=== PATIENT | male | born 1965 | race Caucasian/White ===

== ENCOUNTER 2024-02-17 19:29 | Emergency (ER) | payer OTHER, SELFPAY ==
--- NOTE | 2024-02-17 19:56 | CRLHL7_ITS ---
For Patients: As a result of the Century Cures Act, medical imaging exams and procedure reports are released immediately into your electronic medical record. You may view this report before your referring provider. If you have questions, please contact your health care provider. INDICATION: Crush injury TECHNIQUE: Humerus radiographs 2 views COMPARISON: None FINDINGS: Bones: Alignment is normal. No acute fractures or aggressive osseous lesions seen. Joint spaces: The visualized glenohumeral and elbow joints are unremarkable. The elbow joint is not profiled and if there is pain or tenderness in this region, dedicated views of the elbow are recommended. Soft tissues: Unremarkable. No radiopaque foreign bodies seen. IMPRESSION: 1. No acute osseous injuries are identified. Dictated by Matt Barry MD @ 02/17/2024 9:20:36 PM (Electronically Signed)
--- NOTE | 2024-02-17 19:57 | XR_ITS ---
Patient: KYMBERLY CM Facility:?[facility] Patient ID:?[id number] Site Patient ID:?[id number]. Site :?[id number] Study:?XRay-Extremity Left HUMERUS 2 VIEW-02/17/2024 8:35:25 PM Ordering Physician:Neha Dacosta Final Report: ----- ADDENDUM ----- INDICATION: Crush injury TECHNIQUE: Humerus radiographs 2 views COMPARISON: None FINDINGS: Bones: Alignment is normal. No acute fractures or aggressive osseous lesions seen. Joint spaces: The visualized glenohumeral and elbow joints are unremarkable. The elbow joint is not profiled and if there is pain or tenderness in this region, dedicated views of the elbow are recommended. Soft tissues: Unremarkable. No radiopaque foreign bodies seen. Triceps enthesophyte. IMPRESSION: No acute osseous injuries are identified. Dictated by Matt Barry MD @ Feb 17 2024 9:21PM Signed by:?Matt Barry MD @02/17/2024 9:40:49 PM (Electronic Signature)
[2024-02-17 20:23] VITALS: BP 134/85; PULSE 89; RESP 22; TEMP 36.8; O2SAT 96; BMI 25.2
--- NOTE | 2024-02-17 20:24 | ED_ITS ---
HPI - Extremity Injury (Upper) General Time Seen by Provider: 20:24 Date Seen: 02/17/24 Chief Complaint: Extremity Pain/Injury, Upper Stated Complaint: broken L arm Time Seen by Provider: 02/17/24 20:21 Source: patient, RN notes reviewed and old records reviewed Mode of arrival: ambulatory Limitations: no limitations History of Present Illness HPI narrative: 59-year-old right-handed male who presents today with left arm pain. Related Data Home Medications ?Medication ?Instructions ?Recorded ?Confirmed albuterol 90 mcg/actuation aerosol mcg inhalation 02/17/24 02/17/24 inhaler atorvastatin 20 mg tablet 20 mg PO QPM 02/17/24 02/17/24 empagliflozin 25 mg tablet 25 mg PO QDAY 02/17/24 02/17/24 (Jardiance) famotidine 40 mg tablet 40 mg PO QHS 02/17/24 02/17/24 metformin 500 mg tablet 500 mg PO BIDWMEAL 02/17/24 02/17/24 pantoprazole 40 mg tablet,delayed 40 mg PO QDAY 02/17/24 02/17/24 release (Protonix) Allergies Allergy/AdvReac Type Severity Reaction Status Date / Time Penicillins AdvReac Severe Verified 02/17/24 18:54 amoxicillin AdvReac Intermediate Verified 02/17/24 18:54 Exam Narrative: Exam Narrative: General: Well-developed and well-nourished, no acute distress Head: Atraumatic and normocephalic Eyes: Pupils are equal reactive, extraocular motions intact, conjunctiva clear ENT: External nose and ears are normal, posterior pharynx without erythema or exudate Neck: No midline cervical tenderness, full spontaneous range of motion the neck, trachea midline, no adenopathy Heart: Regular rate and rhythm no murmurs or thrills Lungs: Clear to auscultation bilaterally without wheezes or crackles Abdomen: Soft, nontender, nondistended with active bowel sounds Musculoskeletal: No tenderness, deformity, or edema Neurologic: Awake, alert, and oriented x3, no gross focal neurologic deficits, cranial nerves intact as tested Psych: Mood and affect are appropriate Skin: No rashes Const: Vital Signs, click to edit/add: Vital Signs - 24 hr 02/17/24 20:23 Temperature 98.2 F Pulse Rate [Pulse Oximeter] 89 Respiratory Rate 22 Blood Pressure [Ri ght Upper Arm] 134/85 Pulse Oximetry 96 Oxygen Delivery Me thod Room Air Course Course ED Course: Patient seen examined, reviewed urgent care visit from earlier today when patient was briefly evaluated sent to the emergency department for further e valuation. Patient sustained a crush injury of the right forearm. X-ray ordered from triage independently interpreted by me with no acute fracture of the left forearm or left humerus. Patient does have some abrasions of the left forearm, he otherwise distal pulses and sensation intact with no pain with passive movement to suggest compartment syndrome. Gregory wrap will be placed and anticipate discharge. Vital Signs Vital signs: Initial Vital Signs Temperature 98.2 F 02/17/24 20:23 Temperature Source Temporal Artery Scan 02/17/24 20:23 Pulse Rate 89 02/17/24 20:23 Pulse Rhythm Regular 02/17/24 20:23 Pulse Strength 3+ Normal 02/17/24 20:23 Respiratory Rate 22 02/17/24 20:23 Blood Pressure 134/85 02/17/24 20:23 Blood Pressure Mean 101 02/17/24 20:23 Blood Pressure Position Sitting 02/17/24 20:23 Pulse Oximetry 96 02/17/24 20:23 Oxygen Delivery Method Room Air 02/17/24 20:23 Vital Signs Temperature 98.2 F 02/17/24 20:23 Pulse Rate 89 02/17/24 20:23 Respiratory Rate 22 02/17/24 20:23 Blood Pressure 134/85 02/17/24 20:23 Pulse Oximetry 96 02/17/24 20:23 Oxygen Delivery Method Room Air 02/17/24 20:23 Temperature 98.2 F 02/17/24 20:23 Pulse Rate 89 02/17/24 20:23 Respiratory Rate 02/17/24 20:23 Blood Pressure 134/85 02/17/24 20:23 Pulse Oximetry 96 02/17/24 20:23 Oxygen Delivery Method Room Air 02/17/24 20:23 Discharge Plan Discharge Clinical Impression: Contusion of forearm, left, Crush injury forearm Patient Disposition: Home, Self-Care Condition: Stable Instructions: Crush Injury (ED) Additional Instructions: Gregory wrap for comfort Ice 15-20 minutes at a time every 2-3 hours while awake for 24 hours Tylenol and ibuprofen as needed for pain Activity Level: Activity as Tolerated Discharge Diet: Regular Prescriptions: No Action metformin 500 mg tablet 500 mg PO BIDWMEAL Jardiance 25 mg tablet 25 mg PO QDAY atorvastatin 20 mg tablet 20 mg PO QPM famotidine 40 mg tablet 40 mg PO QHS pantoprazole [Protonix] 40 mg tablet,delayed release (DR/EC) 40 mg PO QDAY albuterol 90 mcg/actuation aerosol inhalation Follow Up/Referrals: Provider,Not a Local [Primary Care Provider] - Stand Alone [facility]: [email or web address] Info Instructions
--- OUTSIDE RECORDS SUMMARY | 2024-02-17 21:46 | XMS_ITS | Encounter Summary ---
Author Organization [facility] Address [address] [place] [address]. [place] [address] Care Team Providers Care Chartered Accountant Name Role Phone Jimbo Green MD Unavailable Radha Jaffe MD Unavailable [phone] Bhaskar Denis MD Unavailable [phone] [facility] Primary Care Provi sandra Vasiliy Boston MD Unavailable Encounter Details Date Type Department Care Team (Latest Contact Info) Description 02/14/2024 Travel Social History Tobacco Use Types Packs/Day Years Used Date Smoking Tobacco: Former Cigarettes Dip, chew, snus or snuff Passive Smoke Exposure: Yes Smokeless Tobacco: Current Chew Comments:Occasionally uses s nuff Alcohol Use Standard Drinks/Week Comments Yes 0 (1 standard drink = 0.6 oz pur e alcohol) 1- drink a week occ Social Connection and Isolation Panel [NHANES] A nswer Date Recorded Frequency of Communication with Friends and Fami ly Not on file 09/16/2023 How often do you get together with friends or re latives? Once a week 09/16/2023 Attends Gnosticism Services Not on file 09/15 Active Member of Clubs or Organizations Not on f ile 09/16/2023 Attends Club or Organization Meetings Not on sinai e 09/16/2023 Marital Status Not on file 09/16/2023 PHQ-2 Answer Date Recorded PHQ-2 Score 0 02/14/2024 [facility] - Occupational Stress Questionnaire Answer Date Recorded Do you feel stress - tense, restless, nervous, or anxious, or unable to sleep at night because your mind is troubled all the time - these days? Not at all 09/16/2023 Exercise Vital Sign Answer Date Recorde d On average, how many days pe r week do you engage in moderate to strenuous exercise (like a brisk walk)? 4 days 09/16/2023 On average, how many minutes do you engage in exercise at this level? 60 min 09/16/2023 Adolescent Education Answer Date Record ed Getting School Help Needed Not on file 02/26 Food Insecurity Answer Date Recorded Within the past 12 months, d id you worry that your food would run out before you got money to buy more? No 09/16/2023 Within the past 12 months, d id the food you bought just not last and you didn? t have money to get more? No 09/16/2023 Housing Stability Answer Date Recorded Do you have housing? (Keyur bales is defined as stable permanent housing and does not include staying ouside in a car, in a tent, in an abandoned building, in an overnight half-way, or couch-surfing.) Yes 09/16/2023 Are you worried about losing your housing? No 09/16/2023 Financial Resource Strain Answer Date R ecorded Within the past 12 months, h ave you or your family members you live with been unable to get utilities (heat, electricity) when it was really needed? No 09/16/2023 Transportation Needs Answer Date Record ed Within the past 12 months, h as lack of transportation kept you from medical appointments, getting your medicines, non-medical meetings or appointments, work, or from getting things that you need? No 09/16/2023 Interpersonal Safety Answer Date Record ed Do you feel physically and e motionally safe where you currently live? Yes 09/16/2023 Within the past 12 months, h ave you been hit, slapped, kicked or otherwise physically hurt by someone? No 09/16/2023 Within the past 12 months, h ave you been humiliated or emotionally abused in other ways by your partner or ex-partner? No 09/16/2023 Sex and Gender Information Value Date Recorded Sex Assigned at Not on file Gender Identity Not on file Sexual Orientation Not on file documented as of this encounter Plan of Treatment Upcoming Encounters Date Type Department Care Team (Latest Contact Info) Description 03/07/2024 7:30 AM CDT Hospital Encounter [facility] [address] [place] [address] Bhaskar Denis MD [address] [place] [id number] 03/07/2024 7:30 AM CDT Anesthesia Event [facility] [address] [place] [address] Rima Bray PA-C [facility], SURGERY [address] [address] 03/07/2024 7:30 AM CDT - 03/07/2024 10:00 AM CDT Surgery [facility] [address] [place] [address] Bhaskar Denis MD [address] [place] [id number] 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 03/31/2024 9:30 AM CDT Office Visit [address] [address] Crescencio Hou, PAFerozC [address] [place] [address] 04/28/2024 9:00 AM SLATE 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 Author Total Joint Replacement Hip Pathway Care Plan Total Joint Replacement Hip Pathway No Miranda Dunn documented as of this encounter Visit Diagnoses Not on filedocumented in this encounter Additional Health Concerns Active Problems Noted Date Diagnosed Date Total Joint Replacement Hip Pathway 08/27/2023 documented as of this encounter Care Teams Chartered Accountant Relationship Specialty Start Date End Date [facility], [address] [place] [address] PCP - General 09/16/23 Jimbo Green MD ORTHOPEDIC FRACTURE [facility] [address] [place] [address] Family Practice 04/19/13 Radha Jaffe MD [address] [place] [address] Orthopedics 06/03/18 Bhaskar Denis MD [address] [place] [address] Assigned Musculoskeletal Provider 08/28/23 Vasiliy Boston MD [address] [place] [address] [place]ENDIETA [address] Assigned PCP 10/28/23 documented as of this encounter
--- OUTSIDE RECORDS SUMMARY | 2024-02-17 21:46 | XMS_ITS | Referral Summary ---
Author Organization [facility] Address [address] [place] [address] Care Team Providers Care Supervisor Line Department Name Role Phone Jimbo Green MD Unavailable [phone] Radha Jaffe MD Unavailable [phone] Bhaskar Denis MD Unavailable [phone] [facility] Primary Care Provi sandra Vasiliy Boston MD Unavailable Encounters Date Type Department Care Team Description 02/15/2024 7:30 AM CDT Lab [facility] [address] [place] [address] Osteoarthrosis, localized, primary, knee, right; Preop examination; Type 2 diabetes mellitus without complication, without long-term current use of insulin (H) 02/14/2024 MyC Medical Advice [facility] Preoperative Assessment [address] [phone] Ai Cox RN 02/14/2024 Travel 02/14/2024 PRE VISIT [facility] Preoperative Assessment [address] [address] Rima Bray PA-C 02/14/2024 7:00 AM CDT Office Visit [facility] Preoperative Assessment [address] [address] Rima Bray PA-C Preop examination (Primary Dx); Osteoarthrosis, localized, primary, knee, right; Type 2 diabetes mellitus without complication, without long-term current use of insulin (H) 01/13/2024 [facility] Medical Advice [facility] [address] [place] [address] Jeromy Alejandro H Osteoarthrosis, localized, primary, knee, right (Primary Dx); S/P total knee arthroplasty, right 2024 MyC Medical Advice [facility] [address] [place] [address] Bhaskar Denis MD 12/18/2023 Travel 12/18/2023 10:30 AM CDT Lab [facility] [address] [place] [address] Diabetes mellitus, type 2 (H) (Primary Dx) 12/17/2023 Travel from Last 3 Months Allergies Active Allergy Reactions Criticality Noted Date Comments Amoxicillin 11/02/2013 Dust Mites Other (See Comments) 10/23/2013 No reaction listed in [employer]ner Mold Other (See Comments) 10/10/2010 No reaction listed in [facility] Penicillins Other (See Comments),Nausea and Vomiting 08/01/2013 Ragweeds Other (See Comments) 10/23/2013 No reaction listed in [facility] Medications Medication Sig Dispensed Refills Start Date End Date Status pantoprazole (PROTONIX) 40 MG enteric coated tablet Take 1 tablet by mouth every evening Active famotidine (PEPCID) 40 MG tablet Take 40 mg by mouth every morning Active albuterol (PROAIR HFA, PROVENTIL HFA, VENTOLIN HFA) 108 (90 BASE) MCG/ACT inhalerIndications: Exercise-Induced Bronchospastic Disease Inhale 2 puffs into the lungs every 6 hours as needed for shortness of breath / dyspnea or wheezing Active cholecalciferol (VITAMIN D3) 25 mcg (1000 units) capsule Take 1 capsule by mouth daily Active co-enzyme Q-10 30 MG CAPS capsule Take 50 mg by mouth daily Active metFORMIN (GLUCOPHAGE XR) 500 MG 24 hr tabletIndications:T ype 2 diabetes mellitus with hyperglycemia, unspecified whether supervisor intermediates insulin use (H) Take 2 tablets (1,000 mg) by mouth daily (with dinner) 180 tablet 1 09/16/2023 Active empagliflozin (JARDIANCE) 10 MG TABS tabletIndications:T ype 2 diabetes mellitus with hyperglycemia, unspecified whether residential insulin use (H) Take 1 tablet (10 mg) by mouth daily 90 tablet 1 09/16/2023 Active Additional Information Patient taking differently:10 mg OralEVERY EVENING, Reported on 02/14/2024 atorvastatin (LIPITOR) 20 MG tabletIndications:H yperlipidemia LDL goal <100 Take 1 tablet (20 mg) by mouth daily 90 tablet 3 09/21/2023 Active Additional Information Patient taking differently:20 mg OralEVERY EVENING, Reported on 02/14/2024 COMPRESSION STOCKINGSIndication s:DVT (deep venous thrombosis), right Please wear stockings in both leg or just the effected leg (right leg) most time during the day and take them off at night. 2 each 2 01/08/2014 4 Discontinu ed(Med Rec(No AVS / No eCancel)) Hospital, Clinic, or Other Facility Administered Medication Ordered Dose Route Frequency Start Date End Date Status lidocaine (PF) (XYLOCAINE) 1 % injection 9 mLIndications:Primary osteoarthritis of right knee 9 mL 06/06/2018 Active triamcinolone (KENALOG-40) injection 40 mgIndications:Primary osteoarthritis of right knee 40 mg 06/06/2018 Active triamcinolone (KENALOG-40) injection 40 mgIndications:Primary osteoarthritis of right knee 40 mg 10/21/2021 Active lidocaine (PF) (XYLOCAINE) 1 % injection 9 mLIndications:Primary osteoarthritis of right knee 9 mL 10/21/2021 Active Active Problems Problem Noted Date Diagnosed Date Diabetes mellitus, type 2 09/16/2023 Resolved Problems Problem Noted Date Diagnosed Date Resolved Date Acute pain of left shoulder 07/15/2020 02/07/2021 Lateral epicondylitis, unspecified laterality 07/15/1902/07/2021 Medial epicondylitis of elbo w, unspecified laterality 07/15/2020 02/07/2021 Knee pain, right 07/04/2018 08/01/2018 Aftercare following surgery of the musculoskeletal system 07/04/2018 08/01/2018 Other postprocedural status 11/11/2013 06/20/2014 Patellofemoral arthritis 10/04/2013 Immunizations Name Administration Dates Next Due Flu, Unspecified 02/25/2016,05/13/2009 HepB, Unspecified 05/27/1994,12/22/1993,11/20/18 94 Historical Hepb 05/27/1994,12/22/1993,11/20/1993 Influenza (H1N1) 07/26/2009 Influenza (IIV3) PF 04/04/2010 Influenza Vaccine, 6+MO IM ( QUADRIVALENT W/PRESERVATIVES) 02/25/2016 Influenza, seasonal, injectable, PF 05/13/2009 TDAP (Adacel,Boostrix) 09/16/2023,12/25/2011 Td (Adult), Adsorbed 05/12/1999 Social History Tobacco Use Types Packs/Day Years [...] re latives? Once a week 09/16/2023 Attends [employer] Services Not on file 09/15 Active Member of Clubs or Organizations Not on f ile 09/16/2023 Attends Club or Organization Meetings Not on sinai e 09/16/2023 Marital Status Not on file 09/16/2023 PHQ-2 Answer Date Recorded PHQ-2 Score 0 02/14/2024 [facility] [place] of Occupat ional Health - Occupational Stress [...] in an abandoned building, in an overnight chcf, or couch-surfing.) Yes 09/16/2023 Are you worried [...] on file Sexual Orientation Not on file Last Filed Vital Signs Vital Sign Reading Time Taken Comments Blood Pressure 123/80 02/14/2024 6:53 AM CDT Pulse 80 02/14/2024 6:53 AM CDT Temperature 36.6 ??C (97.9 ??F) 02/14/2024 6:53 AM CD T Respiratory Rate 16 02/14/2024 6:53 AM CDT Oxygen Saturation 97% 02/14/2024 6:53 AM CDT Inhaled Oxygen Concentration - - Weight 89.4 kg (197 lb) 02/14/2024 6:53 AM CDT Height 188 cm (6' 2) 02/14/2024 6:53 AM CDT Body Mass Index 25.29 02/14/2024 6:53 AM CDT Plan of Treatment Upcoming Encounters Date Type Department Care Team (Latest Contact Info) Description 03/07/2024 7:30 AM CDT Hospital Encounter [facility] PeriOp Services [address] [place] [address] Bhaskar Denis MD [address] [place] [phone] 03/07/2024 7:30 AM CDT Anesthesia Event [facility]iOp Services [address] [place] [address] Rima Bray PA-C [facility], SURGERY [address] [place] [address] 03/07/2024 7:30 AM CDT - 03/07/2024 10:00 AM CDT Surgery [facility] PeriOp Services [address] [place] [address] Bhaskar Denis MD [address] [place] [address] 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 03/31/2024 9:30 AM CDT Office Visit [facility] [id number] [place] [address] [address] [place] [address] Crescencio Hou PAFerozC [address] [place] [address] 04/28/2024 9:00 AM 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 Author Total Joint Replacement Hip Pathway Care Plan Total Joint Replacement Hip Pathway No Miranda Dunn Medical Devices Implanted Type Area Silicator Device Identifier Shelf Expiration Date Model / Serial / Lot Arthrosurface 11mm Taper Post Implanted:Qty: 1 on 11/03/2013 by Radha Jaffe MD at [facility] Right: Knee RAUL [employer] 10/04/2017 [id number] / / [id number] Arthrosurface Femoral-Trochlea, X-Large +7.0mm X -5.0mm Offset Implanted:Qty: 1 on 11/03/2013 by Radha Jaffe MD at [facility] Right: Knee [employer]UL [employer] 02/04/2019 [id number] / / [id number] Procedures Procedure Name Priority Date/Time Associated Diagnosis Comments ABO/RH TYPE AND SCREEN Routine 02/15/2024 7:36 AM CDT Osteoarthrosis, localized, primary, knee, right Preop examination TYPE AND SCREEN, ADULT Routine 02/15/2024 7:36 AM CDT Osteoarthrosis, localized, primary, knee, right Preop examination HEMOGLOBIN A1C Routine 02/15/2024 7:36 AM CDT Osteoarthrosis, localized, primary, knee, right Preop examination Type 2 diabetes mellitus without complication, without long-term current use of insulin (H) CBC WITH PLATELETS Routine 02/15/2024 7: 36 AM CDT Osteoarthrosis, localized, primary, knee, right Preop examination BASIC METABOLIC PANEL Routine 02/15/2024 7:36 AM CDT Osteoarthrosis, localized, primary, knee, right Preop examination HEMOGLOBIN A1C Routine 12/18/2023 10:30 AM CDT Diabetes mellitus, type 2 (H) HIV ANTIGEN ANTIBODY COMBO Routine 09/16/2023 4:59 PM CDT Screening for HIV (human immunodeficiency virus) Encounter for annual physical exam HEPATITIS C SCREEN REFLEX TO HCV RNA QUANT AND GENOTYPE Routine 09/16/2023 4:59 PM CDT Need for hepatitis C screening test Encounter for annual physical exam ALBUMIN RANDOM URINE QUANTITATIVE Routine 09/16/2023 4:59 PM CDT Type 2 diabetes mellitus with hyperglycemia, unspecified whether residential insulin use (H) LIPID REFLEX TO DIRECT LDL PANEL Routine 09/16/2023 4:59 PM CDT Hyperlipidemia LDL goal <100 Encounter for annual physical exam from Last 3 Months or Most Recently Relevant to Health Maintenance Results * Adult Type and Screen (02/15/2024 7:36 AM CDT) ABO/RH(D) O POS 02/14/2024 7:00 PM CDT RH BLOOD BANK Antibody Screen Negative Negative 02/14/2024 7:00 PM CDT RH BLOOD BANK SPECIMEN EXPIRATION DATE [id number] 02/14/2024 7:00 PM CDT RH BLOOD BANK Blood BLOOD SPECIMEN / Unknown Venipuncture / Unknown 02/15/2024 7:36 AM CDT 02/15/2024 7:36 AM CDT Rima Bray PA-C LAB - BLOOD BANK ROLANDA T ORDER RH BLOOD BANK [address] [place] [address], [facility] * (ABNORMAL) Hemoglobin A1c (02/15/2024 7:36 AM CDT) Only the most recent of2 resultswithin the time period is included. Hemoglobin A1C 7.1(H) 0.0 - 5.6 % 02/15/2024 7:46 AM CDT [facility] Comment: Normal <5.7% Prediabetes 5.7-6.4% ?? Diabetes 6.5% or higher Note: Adopted from ADA consensus guidelines. Blood BLOOD SPECIMEN / Unknown Venipuncture / Unknown 02/15/2024 7:36 AM CDT 02/15/2024 7:36 AM CDT Rima Bray PA-C LAB - BLOOD ORDERABL ES [facility] [address] [facility] (no room number, 1st floor of clinic) [place] [address], [facility] * (ABNORMAL) Basic metabolic panel (02/15/2024 7:36 AM CDT) Sodium 142 135 - 145 mmol/L 02/15/2024 4:49 PM CDT [facility] Potassium 4.4 3.4 - 5.3 mmol/L 02/15/2024 4:49 PM CDT [facility] Chloride 106 98 - 107 mmol/L 02/15/2024 4:49 PM CDT [facility] Carbon Dioxide (CO2) 25 22 - 29 mmol/L 02/15/2024 4:49 PM CDT [facility] Anion Gap 11 7 - 15 mmol/L 02/15/2024 4:49 PM CDT [facility] Urea Nitrogen 21.9 8.0 - 23.0 mg/dL 02/15/2024 4:49 PM CDT [facility] Creatinine 1.20(H) 0.67 - 1.17 mg/dL 02/15/2024 4:49 PM CDT [facility] GFR Estimate 70 >60 mL/min/1.7 3m2 02/15/2024 4:49 PM CDT [facility] Comment:eGFR calculated usin 2020 CKD-EPI equation. Calcium 9.4 8.8 - 10.4 mg/dL 02/15/2024 4:49 PM CDT [facility] Comment:Reference intervals for this test were updated on 12/21/2023 to reflect our healthy population more accurately. There may be differences in the flagging of prior results with similar values performed with this method. Those prior results can be interpreted in the context of the updated reference intervals. Glucose 125(H) 70 - 99 mg/dL 02/15/2024 4:49 PM CDT [facility] Blood BLOOD SPECIMEN / Unknown Venipuncture / Unknown 02/15/2024 7:36 AM CDT 02/15/2024 7:36 AM CDT Rima Bray PA-C LAB - BLOOD ORDERABL ES [facility] [address] [facility], [address] [place] [address] * (ABNORMAL) CBC with platelets (02/15/2024 7:36 AM CDT) WBC Count 5.8 4.0 - 11.0 10e3/uL 02/15/2024 7:46 AM CDT [facility] RBC Count 5.31 4.40 - 5.90 10e6/uL 02/15/2024 7:46 AM CDT [facility] Hemoglobin 14.8 13.3 - 17.7 g/dL 02/15/2024 7:46 AM CDT [facility] Hematocrit 47.1 40.0 - 53.0 % 02/15/2024 7:46 AM CDT [facility] MCV 89 78 - 100 fL 02/15/2024 7:46 AM CDT [facility] MCH 27.9 26.5 - 33.0 pg 02/15/2024 7:46 AM CDT [facility] MCHC 31.4(L) 31.5 - 36.5 g/dL 02/15/2024 7:46 AM CDT [facility] RDW 13.2 10.0 - 15.0 % 02/15/2024 7:46 AM CDT [facility] Platelet Count 171 150 - 450 10e3/uL 02/15/2024 7:46 AM CDT [facility] Blood BLOOD SPECIMEN / Unknown Venipuncture / Unknown 02/15/2024 7:36 AM CDT 02/15/2024 7:36 AM CDT Rima Bray PA-C LAB - BLOOD ORDERABL [facility] [address] [facility] (no room number, 1st floor of clinic) [place] [address], [facility] * HIV Antigen Antibody Combo (09/16/2023 4:59 PM CDT) HIV Antigen Antibody Combo Nonreactive Nonreactive 09/17/2023 2:44 PM CDT [facility] Comment:Negative HIV-1 p24 a ntigen and HIV-1/2 antibody screening test results usually indicate the absence of HIV-1 and HIV-2 infection. However, such negative results do not rule-out acute HIV infection. If acute HIV-1 or HIV-2 infection is suspected, detection of HIV-1 or HIV-2 RNA is recommended. Blood STRUCTURE OF RIGHT UPPER LIMB / Unknown Venipuncture / Unknown 09/16/2023 4:59 PM CDT 09/16/2023 4:59 PM CDT Vasiliy Boston MD LAB - BLOOD ORDERABL [facility] [address] [facility], [address] [address] * Hepatitis C Screen Reflex to HCV RNA Quant and Genotype (09/16/2023 4:59 PM CDT) Hepatitis C Antibody Nonreactive Nonreactive 09/17/2023 2:21 PM CDT [facility] Comment:A nonreactive screen ing test result does not exclude the possibility of exposure to or infection with HCV. Nonreactive screening test results in individuals with prior exposure to HCV may be due to antibody levels below the limit of detection of this assay or lack of reactivity to the HCV antigens used in this assay. Patients with recent HCV infections (<3 months from time of exposure) may have false- negative HCV antibody results due to the time needed for seroconversion (average of 8 to 9 weeks). Blood STRUCTURE OF RIGHT UPPER LIMB / Unknown Venipuncture / Unknown 09/16/2023 4:59 PM CDT 09/16/2023 4:59 PM CDT Vasiliy Boston MD LAB - BLOOD ORDERABL ES [facility] [address] [facility], [address] [phone] * Albumin Random Urine Quantitative with Creat Ratio (09/16/2023 4:59 PM CDT) Creatinine Urine mg/dL 120.0 mg/dL 09/17/2023 2:40 PM CDT [facility] Comment:The reference ranges have not been established in urine creatinine. The results should be integrated into the clinical context for interpretation. Albumin Urine mg/L <12.0 mg/L 2023 2:40 PM CDT [facility] Comment:The reference ranges have not been established in urine albumin. The results should be integrated into the clinical context for interpretation. Albumin Urine mg/g Cr 09/17/2023 2:40 PM CDT [facility] Comment: Unable to calculate, urine albumin and/or urine creatinine is outside detectable limits. Microalbuminuria is defined as an albumin:creatinine ratio of 17 to 299 for males and 25 to 299 for females. A ratio of albumin:creatinine of 300 or higher is indicative of overt proteinuria. Due to biologic variability, positive results should be confirmed by a second, first-morning random or 24-hour timed urine specimen. If there is discrepancy, a third specimen is recommended. When 2 out of 3 results are in the microalbuminuria range, this is evidence for incipient nephropathy and warrants increased efforts at glucose control, blood pressure control, and institution of therapy with an qxamuqcakkf-mscipyapnt-ytvpvz (AL) inhibitor (if the patient can tolerate it). ?? Urine URINE SPECIMEN / Unknown Non-blood Collection / Unknown 09/16/2023 4:59 PM CDT 09/16/2023 4:59 PM CDT Vasiliy Boston MD LAB - URINE ORDERABL ES [facility] [address] [facility], [address] [place] [address], [facility] * (ABNORMAL) Lipid panel reflex to direct LDL Non-fasting (09/16/2023 4:59 PM CDT) Cholesterol 258(H) <200 mg/dL 09/17/2023 2:25 PM CDT [facility] Triglycerides 200(H) <150 mg/dL 09/17/2023 2:25 PM CDT [facility] Direct Measure HDL 43 >=40 mg/dL 09/17/2023 2:25 PM CDT [facility] LDL Cholesterol Calculated 175(H) <=100 mg/dL 09/17/2023 2:25 PM CDT [facility] Non HDL Cholesterol 215(H) <130 mg/dL 09/17/2023 2:25 PM CDT [facility] Patient Fasting > 8hrs? No 09/17/2023 2:25 PM CDT [facility] Blood STRUCTURE OF RIGHT UPPER LIMB / Unknown Venipuncture / Unknown 09/16/2023 4:59 PM CDT 09/16/2023 4:59 PM CDT Narrative [facility] - 09/17/2023 2:25 PM CDT Cholesterol Desirable: ??<200 mg/dL Triglycerides Normal: ??Less than 150 mg/dL Borderline High: ??150-199 mg/dL High: ??200-499 mg/dL Very High: ??Greater than or equal to 500 mg/dL Direct Measure HDL Female: ??Greater than or equal to 50 mg/dL Male: ??Greater than or equal to 40 mg/dL LDL Cholesterol Desirable: ??<100mg/dL Above Desirable: ??100-129 mg/dL Borderline High: ??130-159 mg/dL High: ??160-189 mg/dL Very High: ??>= 190 mg/dL Non HDL Cholesterol Desirable: ??130 mg/dL Above Desirable: ??130-159 mg/dL Borderline High: ??160-189 mg/dL High: ??190-219 mg/dL Very High: ??Greater than or equal to 220 mg/dL Vasiliy Boston MD LAB - BLOOD ORDERABL ES [facility] [address] [facility] [address], [address] [place] [address], [facility] from Last 3 Months or Most Recently Relevant to Health Maintenance Additional Health Concerns Active Problems Noted Date Diagnosed Date Total Joint Replacement Hip Pathway 08/27/2023 Care Teams Supervisor Line Department Relationship Specialty Start Date End Date [facility], [address] [id number] PCP - General 09/16/23 Jimbo Green MD ORTHOPEDIC FRACTURE [facility] [address] [place] [address] Family Practice 04/19/13 Radha Jaffe MD [address] [place] [phone] Orthopedics 06/03/18 Bhaskar Denis MD [address] [place] [address] Assigned Musculoskeletal Provider 08/28/23 Vasiliy Boston MD [address] [place] [address] TOMASA MENDIETA [address] Assigned PCP 10/28/23
--- OUTSIDE RECORDS SUMMARY | 2024-02-17 21:46 | XMS_ITS | Encounter Summary ---
Author Organization [place] Address [address] [place] [address]. [place] [address] Care Team Providers Care Nurse College Name Role Phone Jimbo Green MD Unavailable [phone] Radha Jaffe MD Unavailable [phone] Bhaskar Denis MD Unavailable [phone] [facility] Primary Care Provi sandra Vasiliy Boston MD Unavailable Encounter Details Date Type Department Care Team (Late st Contact Info) Description 02/14/2024 MyC Medical Advice [facility] Preoperative Assessment Center [address] [place] [address] Ai Cox, RN Social History Tobacco Use Types Packs/Day Years [...] re latives? Once a week 09/16/2023 Attends [employer] Not on file 09/15 Active Member of Clubs or Organizations Not on f ile 09/16/2023 Attends Club or Organization Meetings Not on sinai e 09/16/2023 Marital Status Not on file 09/16/2023 PHQ-2 Answer Date Recorded PHQ-2 Score 0 02/14/2024 [facility] of Occupat ional Health - Occupational Stress [...] Answer Date Recorded Do you have housing? (Housin g is defined as stable permanent housing and does not include staying ouside in a car, in a tent, in an abandoned building, in an overnight long-term, or couch-surfing.) Yes 09/16/2023 Are you worried [...] Description 03/07/2024 7:30 AM CDT Hospital Encounter [facility] PeriOp Services [address] [place] [address] Bhaskar Denis MD [address] [place] [address] 03/07/2024 7:30 AM CDT [facility] [address] [place] [address] Rima Bray PA-C [facility], SURGERY [address] [place] [address] 03/07/2024 7:30 AM CDT - 03/07/2024 10:00 AM CDT Surgery [facility]iOp Services [address] [place] [address] Bhaskar Denis MD [address] [place] [address] 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 03/31/2024 9:30 AM CDT Office Visit [address] [address] Crescencio Hou PA-C [address] [place] [address] 04/28/2024 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 [address] [address] Crescencio Hou, PAFerozC [address] [place] [address] Scheduled Procedures Name Priority Associated Diagnoses Date/Ti [...] documented as of this encounter Care Teams Nurse College Relationship Specialty Start Date End Date [facility], [address] [address] PCP - General 09/16/23 Jimbo Green MD ORTHOPEDIC FRACTURE [facility] [address] [place] [address] Family Practice 04/19/13 Radha Jaffe MD [address] [place] [address] Orthopedics 06/03/18 Bhaskar Denis MD [address] [place] [address] Assigned Musculoskeletal Provider 08/28/23 Vasiliy Boston MD [address] [place] [address] TOMASA MENDIETA [address] Assigned PCP 10/28/23 documented as of this encounter
--- OUTSIDE RECORDS SUMMARY | 2024-02-17 21:46 | XMS_ITS | Encounter Summary ---
Author Organization [employer] Address [address] [place] [address]. [place] [address] Care Team Providers Care Aircraft Load Controller Name Role Phone Jimbo Green MD Unavailable Radha Jaffe MD Unavailable [phone] Bhaskar Denis MD Unavailable [facility] Primary Care Provi sandra Vasiliy Boston MD Unavailable Encounter Details Date Type Department Care Team (Late st Contact Info) Description 02/14/2024 PRE VISIT [facility] Preoperative Assessment Center [address] 5th [place] [address] Rima Bray PA-C [facility], SURGERY [address] [place] [address] [address] [place] [address] Social History Tobacco Use Types Packs/Day Years [...] re latives? Once a week 09/16/2023 Attends [employer] Not on file 09/15 Active Member of Clubs or Organizations Not on f ile 09/16/2023 Attends Club or Organization Meetings Not on sinai e 09/16/2023 Marital Status Not on file 09/16/2023 PHQ-2 Answer Date Recorded PHQ-2 Score 0 09/03/2023 [facility] - Occupational Stress Questionnaire Answer Date Recorded [...] Date Recorded Do you have housing? (Keyur g is defined as stable permanent housing and does not include staying ouside in a car, in a tent, in an abandoned building, in an overnight mcfp, or couch-surfing.) Yes 09/16/2023 Are you worried [...] on file documented as of this encounter Miscellaneous Notes * Telephone Encounter - Flavia Vyas - 01/14/2024 9:25 AM CDT FUTURE VISIT INFORMATION SURGERY INFORMATION: Date: 03/07/24 Location: or Surgeon: Bhaskar Denis MD Anesthesia Type: choice Procedure: 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 RECORDS REQUESTED FROM: Primary Care Provider: Staci Stiles Most recent EKG+ Tracin07/01/18 documented in this encounter Plan of Treatment Upcoming Encounters Date Type Department Care Team (Latest Contact Info) Description 03/07/2024 7:30 AM CDT Hospital Encounter [facility] PeriOp Services [address] [place] [address] Bhaskar Denis MD [address] [place] [address] 03/07/2024 7:30 AM CDT Anesthesia Event [facility] [address] [place] [address] Rima Bray PA-C [facility], SURGERY [address] [place] [address] 03/07/2024 7:30 AM CDT - 03/07/2024 10:[address] 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 Office Visit [address] [address] Crescencio Hou, PA-C [facility] [place] [address] Scheduled Procedures Name Priority Associated Diagnoses Date/Ti [...] documented as of this encounter Care Teams Aircraft Load Controller Relationship Specialty Start Date End Date [address] [address] PCP - General 09/16/23 Jimbo Green MD ORTHOPEDIC FRACTURE [facility] [address] [place] [address] Family Practice 04/19/13 Radha Jaffe MD 909 [place] [address] Orthopedics 06/03/18 Bhaskar Denis MD 909 [place] [address] Assigned Musculoskeletal Provider 08/28/23 Vasiliy Boston MD [address] [place] [address] T[place]A MENDIETA [address] Assigned PCP 10/28/23 documented as of this encounter
--- OUTSIDE RECORDS SUMMARY | 2024-02-17 21:46 | XMS_ITS | Encounter Summary ---
Author Organization [employer] Address [address] [place] [address] Care Team Providers Care Plant And Instrument Engineer Name Role Phone Jimbo Green MD Unavailable [phone] Radha Jaffe MD Unavailable [phone] Bhaskar Denis MD Unavailable [phone] [facility] Primary Care Provi sandra Vasiliy Boston MD Unavailable Encounter Details Date Type Department Care Team (Late st Contact Info) Description 02/15/2024 7:30 AM CDT Lab [facility] [address] [place] [address] Osteoarthrosis, localized, primary, knee, right; Preop examination; Type 2 diabetes mellitus without complication, without long-term current use of insulin (H) Social History Tobacco Use Types Packs/Day Years [...] re latives? Once a week 09/16/2023 Attends [employer] Not on file 09/15 Active Member of Clubs or Organizations Not on f ile 09/16/2023 Attends Club or Organization Meetings Not on sinai e 09/16/2023 Marital Status Not on file 09/16/2023 PHQ-2 Answer Date Recorded PHQ-2 Score 0 02/14/2024 [facility] - Occupational Stress Questionnaire Answer Date Recorded [...] in an abandoned building, in an overnight correction, or couch-surfing.) Yes 09/16/2023 Are you worried [...] Description 03/07/2024 7:30 AM CDT Hospital Encounter [facility] PeriOp Services [address] [place] [address] Bhaskar Denis MD [address] [place] [address] 03/07/2024 7:30 AM CDT Anesthesia Event [facility] PeriOp Services [address] [place] [address] Rima Bray PA-C [facility], SURGERY [address] [address] 03/07/2024 7:30 AM CDT - 03/07/2024 10:00 AM CDT Surgery [facility] PeriOp Services [address] [place] [address] Bhaskar Denis MD [address] [place] [address] 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 03/31/2024 9:30 AM CDT Office Visit [facility] [place] [address] [facility] [address] [place] [address] Crescencio Hou, PAFerozC [facility] [place] [address] 04/28/2024 9:00 AM CAR EXAMINER Office Visit [facility] Orthopedic [facility] [address] [facility] [address] [place] [address] Crescencio Hou, PAMike [facility] [place] [address] Scheduled Procedures Name Priority Associated Diagnoses Date/Ti me ARTHROPLASTY, KNEE, TOTAL Osteoarthrosis, localized, primary, knee, right 03/07/2024 7:30 AM CDT documented as of this encounter Goals Goal Patient Goal Type Associated Problems Recent Progress Patient-Stated? Author Total Joint Replacement Hip Pathway Care Plan Total Joint Replacement Hip Pathway No DunnMiranda landaverde documented as of this encounter Procedures Procedure Name Priority Date/Time Associated Diagnosis Comments TYPE AND SCREEN, ADULT Routine 02/15/2024 7:36 AM CDT Osteoarthrosis, localized, primary, knee, right Preop examination HEMOGLOBIN A1C Routine 02/15/2024 7:36 AM CDT Osteoarthrosis, localized, primary, knee, right Preop examination Type 2 diabetes mellitus without complication, without long-term current use of insulin (H) ABO/RH TYPE AND SCREEN Routine 02/15/2024 7:36 AM CDT Osteoarthrosis, localized, primary, knee, right Preop examination BASIC METABOLIC PANEL Routine 02/15/2024 7:36 AM CDT Osteoarthrosis, localized, primary, knee, right Preop examination CBC WITH PLATELETS Routine 02/15/2024 7: 36 AM CDT Osteoarthrosis, localized, primary, knee, right Preop examination documented in this encounter Results * Adult Type and Screen (02/15/2024 7:36 AM CDT) ABO/RH(D) O POS 02/14/2024 7:00 PM CDT RH BLOOD BANK Antibody Screen Negative Negative 02/14/2024 7:00 PM CDT RH BLOOD BANK SPECIMEN EXPIRATION DATE [id number] 02/14/2024 7:00 PM CDT RH BLOOD BANK Blood BLOOD SPECIMEN / Unknown Venipuncture / Unknown 02/15/2024 7:36 AM CDT 02/15/2024 7:36 AM CDT Rima Bray PA-C LAB - BLOOD BANK ROLANDA T ORDER RH BLOOD BANK [address] [place] [address] * (ABNORMAL) Hemoglobin A1c (02/15/2024 7:36 AM CDT) Hemoglobin A1C 7.1(H) 0.0 - 5.6 % 02/15/2024 7:46 AM CDT [facility] Comment: Normal <5.7% Prediabetes 5.7-6.4% ?? Diabetes 6.5% or higher Note: Adopted from ADA consensus guidelines. Blood BLOOD SPECIMEN / Unknown Venipuncture / Unknown 02/15/2024 7:36 AM CDT 02/15/2024 7:36 AM CDT Rima Bray PA-C LAB - BLOOD ORDERABL ES Performing Organization Address City/[facility]/ZIP Co de Phone Number [facility] [address] [facility] Lab (no room number, 1st floor of clinic) [place] [address], [facility] * (ABNORMAL) CBC with platelets (02/15/2024 7:36 [...] LAB - BLOOD ORDERABL ES [facility] [address] [facility] Lab (no room number, 1st floor of clinic) [place] [address], [facility] * (ABNORMAL) Basic metabolic panel (02/15/2024 7:36 [...] LAB - BLOOD ORDERABL ES [facility] Core Lab [address] [facility], Room [address] [phone] documented in this encounter Visit Diagnoses Diagnosis Osteoarthrosis, localized, primary, knee, right Preop examination Preoperative examination, unspecified Type 2 diabetes mellitus without complication, without long-term current use of insulin (H) Osteoarthrosis, localized, primary, knee, right documented in this encounter Additional Health Concerns Active Problems Noted Date Diagnosed Date Total Joint Replacement Hip Pathway 08/27/2023 documented as of this encounter Care Teams Plant And Instrument Engineer Relationship Specialty Start Date End Date [facility], [address] [address] PCP - General 09/16/23 Jimbo Green MD ORTHOPEDIC FRACTURE [facility] [address] [place] [address] Family Practice 04/19/13 Radha Jaffe MD [address] [place] [address] Orthopedics 06/03/18 Bhaskar Denis MD [address] [place] [address] Assigned Musculoskeletal Provider 08/28/23 Vasiliy Boston MD 0 [facility] TOMASA MENDIETA [address] Assigned PCP 10/28/23 documented as of this encounter
--- OUTSIDE RECORDS SUMMARY | 2024-02-17 21:46 | XMS_ITS | Clinical Summary ---
Author Organization [employer] Address [address] [place] [address] Care Team Providers Care Accounts Payable Supervisor Name Role Phone Jimbo Green MD Unavailable Radha Jaffe MD Unavailable [phone] Bhaskar Denis MD Unavailable [phone] [facility] Provi sandra Vasiliy Boston MD Unavailable Allergies Active Allergy Reactions Criticality Noted Date [...] 2 diabetes mellitus with hyperglycemia, unspecified whether penitentiary insulin use (H) Take 2 tablets (1,000 mg) by mouth daily (with dinner) 180 tablet 1 09/16/2023 Active empagliflozin (JARDIANCE) 10 MG TABS tabletIndications:T ype 2 diabetes mellitus with hyperglycemia, unspecified whether longwall shearer operator insulin use (H) Take 1 tablet (10 [...] shoulder 07/15/2020 02/07/2021 Lateral epicondylitis, unspecified laterality 07/15/19 21 02/07/2021 Medial epicondylitis of elbo w, unspecified laterality 07/15/2020 02/07/2021 Knee pain, right 07/04/2018 08/01/2018 Aftercare following surgery of the musculoskeletal system 07/04/2018 08/01/2018 Other postprocedural status 11/11/2013 06/20/2014 Patellofemoral arthritis 10/04/2013 Encounters Date Type Department Care Team Description 02/15/2024 7:30 AM CDT Lab [facility] [address] [place] [phone] Osteoarthrosis, localized, primary, knee, right; Preop examination; Type 2 diabetes mellitus without complication, without long-term current use of insulin (H) 02/14/2024 7:00 AM CDT Office Visit [facility] Preoperative Assessment Center [address] [place] [phone] Rima Bray PA-C Preop examination (Primary Dx); Osteoarthrosis, localized, primary, knee, right; Type 2 diabetes mellitus without complication, without long-term current use of insulin (H) 02/14/2024 MyC Medical Advice [facility] Preoperative Assessment Center [address] [phone] Ai Cox RN 02/14/2024 Travel 02/14/2024 PRE VISIT [facility] Preoperative Assessment [address] [phone] Rima Bray PA-C 01/13/2024 MyC Medical Advice [facility] [address] [place] [address] Jeromy Alejandro Osteoarthrosis, localized, primary, knee, right (Primary Dx); S/P total knee arthroplasty, right 2024 MyC Medical Advice [facility] [address] [place] [address] Bhaskar Denis MD 12/18/2023 10:30 AM CDT Lab [facility] [address] [place] [address] Diabetes mellitus, type 2 (H) (Primary Dx) 12/18/2023 Travel 12/17/2023 Travel from Last 3 Months Immunizations Name Administration Dates Next Due Flu, Unspecified 02/25/2016,05/13/2009 HepB, Unspecified 05/27/1994,12/22/1993,11/20/18 94 Historical Hepb 05/27/1994,12/22/1993,11/20/1993 Influenza (H1N1) 07/26/2009 Influenza (IIV3) PF 04/04/2010 Influenza Vaccine, 6+MO IM ( QUADRIVALENT W/PRESERVATIVES) 02/25/2016 Influenza, seasonal, injectable, PF 05/13/2009 TDAP (Adacel,Boostrix) 09/16/2023,12/25/2011 Td (Adult), Adsorbed 05/12/1999 Family History Medical History Relation Comments Substance Abuse Brother Alcohol Diabetes Mother Type 2 Colon Cancer Paternal Grandfather Coronary Artery Disease Paternal Grandfather Anesthesia Reaction No family hx of Deep Vein Thrombosis (DVT) No family hx of Relation Status Comments Brother Mother Paternal Grandfather Social History Tobacco Use Types Packs/Day Years [...] Answer Date Recorded PHQ-2 Score 0 02/14/2024 [facility] [place] [facility] - Occupational Stress [...] in an abandoned building, in an overnight group home, or couch-surfing.) Yes 09/16/2023 Are you worried [...] Description 03/07/2024 7:30 AM CDT Hospital Encounter [facility] PeriOp Services [address] [place] [address] Bhaskar Denis MD [address] [place] [phone] 03/07/2024 7:30 AM CDT Anesthesia Event [facility] PeriOp Services [address] [place] [address] Rima Bray PA-C [facility], SURGERY [address] [address] 03/07/2024 7:30 AM CDT - 03/07/2024 10:00 AM CDT Surgery [facility] PeriOp Services [address] [place] [address] Bhaskar Denis MD [address] [place] [phone] 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 03/31/2024 9:30 AM CDT Office Visit [facility] [place] [phone] [place] [address] [address] [place] [address] Crescencio Hou, PAFerozC [address] [place] [address] 04/28/2024 9:00 AM OPERATIONS SUPERINTENDENT Office Visit [facility] [address] [facility] [address] [place] [address] Crescencio Hou PA-C [address] [place] [address] Scheduled Procedures Name Priority Associated Diagnoses Date/Ti me ARTHROPLASTY, KNEE, TOTAL Osteoarthrosis, localized, primary, knee, right 03/07/2024 7:30 AM CDT Health Maintenance Due Date Last Done Comments CT COLONOGRAPHY 1965 DIABETIC FOOT EXAM 1965 EYE EXAM 1965 FIT 1965 FLEX SIG 1965 sDNA (Cologuard) 1965 Pneumococcal Vaccine: Pediatrics (0 to 5 Years) and At-Risk Patients (6 to 64 Years) (1 of 2 - PCV) 1971 COLONOSCOPY 1975 COLORECTAL CANCER SCREENING 1975 LUNG CANCER SCREENING 2015 ZOSTER IMMUNIZATION (1 of 2) 2015 COVID-19 Vaccine (2 - season) 2024 09/16/2020 INFLUENZA VACCINE (#1) 2024 6, 02/25/2016, 04/04/2010, Additional history exists A1C 05/16/2024 02/15/2024, 12/05, 09/03/2023 ANNUAL REVIEW OF HM ORDERS 09/15/2024 09/16/2023 LIPID 09/15/2024 09/16/2023 MICROALBUMIN 09/15/2024 09/16/2023 YEARLY PREVENTIVE VISIT 09/15/2024 09/16/2023 BMP 02/14/2025 02/15/2024, 08/06, 11/20/2013 ADVANCE CARE PLANNING 09/15/2028 09/16/2023 DTAP/TDAP/TD IMMUNIZATION (3 - Td or Tdap) 09/15/2033 09/16/2023, 12/25/2011, 05/12/1999 HEPATITIS B IMMUNIZATION Completed 994, 05/27/1994, 12/22/1993, Additional history exists HEPATITIS C SCREENING Completed 09/16/2023 HIV SCREENING Completed 09/16/2023 PHQ-2 (once per calendar year) Completed 02/14/2024, 09/03/2023, 07/23/2021, Additional history exists HPV IMMUNIZATION Aged Out No longer e ligible based on patient's age to complete this topic MENINGITIS IMMUNIZATION Aged Out No l onger eligible based on patient's age to complete this topic RSV MONOCLONAL ANTIBODY Aged Out No l onger eligible based on patient's age to complete this topic Goals Goal Patient Goal Type Associated Problems Recent Progress Patient-Stated? Author Total Joint Replacement Hip Pathway Care Plan Total Joint Replacement Hip Pathway No Lisandra Dunnarinbarrett [employer] Implanted Type Area Tire Maintenance Technician Device Identifier Shelf Expiration Date Model / Serial / Lot Arthrosurface 11mm Taper Post Implanted:Qty: 1 on 11/03/2013 by Radha Jaffe MD at [facility] Right: Knee RAUL DueDil 10/04/2017 [id number] / / [id number] Arthrosurface Femoral-Trochlea, X-Large +7.0mm X -5.0mm Offset Implanted:Qty: 1 on 11/03/2013 by Radha Jaffe MD at [facility] Right: Knee RAUL DueDil 02/04/2019 [id number] / / [id number] Procedures Procedure Name Priority Date/Time Associated Diagnosis [...] 2 diabetes mellitus with hyperglycemia, unspecified whether penitentiary insulin use (H) LIPID REFLEX TO DIRECT [...] CDT RH BLOOD BANK SPECIMEN EXPIRATION DATE [id number] 02/14/2024 7:00 PM CDT RH BLOOD BANK Blood BLOOD SPECIMEN / Unknown Venipuncture / Unknown 02/15/2024 7:36 AM CDT 02/15/2024 7:36 AM CDT Rima Bray PA-C LAB - BLOOD BANK ROLANDA T ORDER RH BLOOD BANK [address] [place] [address], [facility] * (ABNORMAL) Hemoglobin A1c (02/15/2024 7:36 [...] PA-C LAB - BLOOD ORDERABL ES LABORATORY [facility] [place] Lab [address] [facility] Lab (no room number, 1st floor of clinic) [place] [address] * (ABNORMAL) Basic metabolic panel (02/15/2024 7:36 [...] LAB - BLOOD ORDERABL ES [facility] [place] [facility] [address] [facility], Room [address] [place] [phone] * (ABNORMAL) CBC with platelets (02/15/2024 7:36 [...] - 450 10e3/uL 02/15/2024 7:46 AM CDT LABORATORY Blood BLOOD SPECIMEN / Unknown Venipuncture / Unknown 02/15/2024 7:36 AM CDT 02/15/2024 7:36 AM CDT Rima Bray PA-C LAB - BLOOD ORDERABL ES LABORATORY [facility] [place] [facility] [address] [facility] Lab (no room number, 1st floor of clinic) [place] [address] * HIV Antigen Antibody Combo (09/16/2023 4:59 [...] MD LAB - BLOOD ORDERABL ES LABORATORY [facility] [place] [facility] [address] [facility], [address] [place] [address] * Hepatitis C Screen Reflex to HCV [...] LAB - BLOOD ORDERABL ES [facility] LAB[facility]ATORY [facility] [place] [facility] [address] [facility], Room [address] [place] [address] * Albumin Random Urine Quantitative with Creat [...] control, and institution of therapy with an juunpygtpop-vgediaxsjf-xmltgj (AL) inhibitor (if the patient can tolerate it). ?? Urine URINE SPECIMEN / Unknown Non-blood Collection / Unknown 09/16/2023 4:59 PM CDT 09/16/2023 4:59 PM CDT Vasiliy Boston MD LAB - URINE ORDERABL ES [facility] LAB[facility] [place] [facility] [address] [facility] [address] Building, [address] [place] [address], [facility] * (ABNORMAL) Lipid panel reflex to [...] LAB - BLOOD ORDERABL ES [facility] LAB[facility] [place] [facility] 500 [facility] J Building, Room [address] [place] [address], [facility] from Last 3 Months or Most Recently Relevant to Health Maintenance Additional Health Concerns Active Problems Noted Date Diagnosed Date Total Joint Replacement Hip Pathway 08/27/2023 Care Teams Accounts Payable Supervisor Relationship Specialty Start Date End Date [facility], [address] [phone] PCP - General 09/16/23 Jimbo Green MD ORTHOPEDIC FRACTURE [facility] [address] [place] [address] Family Practice 04/19/13 Radha Jaffe MD [address] [place] [address] Orthopedics 06/03/18 Bhaskar Denis MD 9 [place] [address] Assigned Musculoskeletal Provider 08/28/23 Vasiliy Boston MD 0 [facility] TOMASA MENDIETA [address] Assigned PCP 10/28/23
--- OUTSIDE RECORDS SUMMARY | 2024-02-17 21:47 | XMS_ITS | Encounter Summary ---
Author Organization [place] Address [address] [place] [address]. [place] [address] Care Team Providers Care Retail Loss Prevention Specialist Name Role Phone Jimbo Green MD Unavailable [phone] Radha Jaffe MD Unavailable [phone] Bhaskar Denis MD Unavailable [phone] [facility] Primary Care Provi sandra Vasiliy Boston MD Unavailable Reason for Referral * Rehab Therapy Physical Therapy (Routine: Next available opening) - Pending Review Specialty Diagnoses / Procedures Referred By Antonio pena Referred To Contact Diagnoses Osteoarthrosis, localized, primary, knee, right S/P total knee arthroplasty, right Bhaskar Denis MD [address] [place] [address] Referral ID Status Reason Start Date Expiration Date V isits Requested Visits Authorized [id number] Pending Review 01/17/2024 01/16/2025 1 1 Question Answer Course of Action: Evaluation and Treatment Specialty Services: Per Associated Diagnosis Scheduling Instructions: [facility] will call you to coordinate your care as prescribed by your provider. If you don't hear from a digital sales representative within 2 business days, please call . Comments Please be aware that coverage of these services is subject to the terms and limitations of your health insurance plan. Call member services at your health plan with any benefit or coverage questions. 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 DOS 03/07/[address] Denis. PT to start 3-5 days after surgery [facility] will call you to coordinate your care as prescribed by your provider. If you don't hear from a digital sales representative within 2 business days, please call . Encounter Details Date Type Department Care Team (Late st Contact Info) Description 01/13/2024 MyC Medical Advice [facility] [place] [id number] [employer] [address] [place] [address] Jeromy Alejandro Osteoarthrosis, localized, primary, knee, right (Primary Dx); S/P total knee arthroplasty, right Social History Tobacco Use Types Packs/Day Years Used Date Smoking Tobacco: Former Cigarettes Dip, chew, snus or snuff Passive Smoke Exposure: Yes Smokeless Tobacco: Current Chew Comments:Occasionally uses s nuff Alcohol Use Standard Drinks/Week Comments Not Currently 0 (1 standard drink = 0.6 oz pur e alcohol) 1- drink a week occ Social Connection and Isolation Panel [NHANES] A nswer Date Recorded Frequency of Communication with Friends and Fami ly Not on file 09/16/2023 How often do you get together with friends or re latives? Once a week 09/16/2023 Attends Gnosticist Services Not on file 09/15 Active Member of Clubs or Organizations Not on f ile 09/16/2023 Attends Club or Organization Meetings Not on sinai e 09/16/2023 Marital Status Not on file 09/16/2023 PHQ-2 Answer Date Recorded PHQ-2 Score 0 09/03/2023 [facility] [place] of Occupat ional Health - Occupational Stress [...] in an abandoned building, in an overnight [place] [facility], or couch-surfing.) Yes 09/16/2023 Are you worried [...] encounter Miscellaneous Notes * Telephone Encounter - Sahara Montenegro RN - 01/17/2024 10:50 AM CDT Hemoglobin A1c is now optimized. Updated post op physical therapy referral entered reflecting new surgical date. Sahara Montenegro RN on 01/17/2024 at 10:53 AM documented in this encounter Plan of Treatment Upcoming Encounters Date Type Department Care Team (Latest Contact Info) Description 03/07/2024 7:30 AM CDT Hospital Encounter [facility] PeriOp Services [address] [place] [address] Bhaskar Denis MD [address] [place] [address] 03/07/2024 7:30 AM CDT Anesthesia Event [facility] [address] [place] [address] Rima Bray PA-C [facility], SURGERY [address] [address] 03/07/2024 7:30 AM CDT - 03/07/2024 10:00 AM CDT Surgery [facility] [address] [place] [address] Bhaskar Denis MD [address] [place] [id number] 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 03/31/2024 9:30 AM CDT Office Visit [address] [address] Crescencio Hou, PA-C [address] [place] [address] 04/28/2024 9:00 AM GRAPHIC TECHNICIAN Office Visit [address] [address] Crescencio Hou, PA-C [address] [place] [address] Scheduled Procedures Name Priority Associated Diagnoses Date/Ti me ARTHROPLASTY, KNEE, TOTAL Osteoarthrosis, localized, primary, knee, right 03/07/2024 7:30 AM CDT Scheduled Referrals Name Type Priority Associated Diagnoses Orde r Schedule Physical Therapy Granite Countertop Installer Referral Referral Routine: Next available opening Osteoarthrosis, localized, primary, knee, right S/P total knee arthroplasty, right Expected: 01/17/2024 (Approximate), Expires: 01/16/2025 documented as of this encounter Goals Goal Patient Goal Type Associated Problems Recent Progress Patient-Stated? Author Total Joint Replacement Hip Pathway Care Plan Total Joint Replacement Hip Pathway No Miranda Dunn documented as of this encounter Visit Diagnoses Diagnosis Osteoarthrosis, localized, primary, knee, right- Primary S/P total knee arthroplasty, right Osteoarthrosis, localized, primary, knee, right documented in this encounter Additional Health Concerns Active Problems Noted Date Diagnosed Date Total Joint Replacement Hip Pathway 08/27/2023 documented as of this encounter Care Teams Retail Loss Prevention Specialist Relationship Specialty Start Date End Date [facility], [address] [place] [address] PCP - General 09/16/23 Jimbo Green MD ORTHOPEDIC FRACTURE [facility] [address] [place] [address] Family Practice 04/19/13 Radha Jaffe MD [address] [place] [address] Orthopedics 06/03/18 Bhaskar Denis MD [address] [place] [address] [id number] Assigned Musculoskeletal Provider 08/28/23 Vasiliy Boston MD [address] [place] [address] TOMASA MENDIETA [address] Assigned PCP 10/28/23 documented as of this encounter
--- OUTSIDE RECORDS SUMMARY | 2024-02-17 21:47 | XMS_ITS | Encounter Summary ---
Author Organization [place] Address [address] [place] [address]. [place] [address] Care Team Providers Care Brake Drum Lathe Operator Name Role Phone Jimbo Green MD Unavailable Radha Jaffe MD Unavailable [phone] Bhaskar Denis MD Unavailable [phone] [facility] Primary Care Provi sandra Vasiliy Boston MD Unavailable Encounter Details Date Type Department Care Team (Late st Contact Info) Description 2024 [facility] Medical Advice [facility] Orthopedic [address] [place] [address] Bhaskar Denis MD [address] [place] [address] Social History Tobacco Use Types [...] Answer Date Recorded PHQ-2 Score 0 09/03/2023 [facility] of Occupat ional Health - Occupational Stress [...] in an abandoned building, in an overnight halfway, or couch-surfing.) Yes 09/16/2023 Are you worried [...] Description 03/07/2024 7:30 AM CDT Hospital Encounter [facility] PeriOp Services [address] [place] [address] Bhaskar Denis MD [address] [place] [address] [phone] 03/07/2024 7:30 AM CDT Anesthesia Event [facility] PeriOp Services [address] [place] [address] Rima Bray PAFerozC [facility], SURGERY [address] [address] 03/07/2024 7:30 AM CDT - 03/07/2024 10:00 AM CDT Surgery [facility] [address] [place] [address] Bhaskar Denis MD [address] [place] [address] 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 03/31/2024 9:30 AM CDT Office Visit [facility] [place] [address] [facility] [address] [place] [address] Crescencio Hou, PAFerozC [facility] [place] [address] 04/28/2024 9:00 AM AFRICAN HISTORY PROFESSOR Office Visit [facility] [place] [address] [facility] [address] [place] [address] Crescencio Hou, PAFerozC [address] [place] [address] Scheduled Procedures Name Priority Associated Diagnoses Date/Ti [...] documented as of this encounter Care Teams Brake Drum Lathe Operator Relationship Specialty Start Date End Date [facility], [address] [address] PCP - General 09/16/23 Jimbo Green MD ORTHOPEDIC FRACTURE [facility] [address] [place] [address] Family Practice 04/19/13 Radha Jaffe MD [address] [place] [address] Orthopedics 06/03/18 Bhaskar Denis MD [address] [place] [address] [id number] Assigned Musculoskeletal Provider 08/28/23 Vasiliy Boston MD [address] [place] [address] TOMASA MENDIETA [address] Assigned PCP 10/28/23 documented as of this encounter
--- OUTSIDE RECORDS SUMMARY | 2024-02-17 21:47 | XMS_ITS | Encounter Summary ---
Author Organization [place] Address [address] [place] [address]. [place] [address] Care Team Providers Care Tube Machine Operator Name Role Phone Jimbo Green MD Unavailable Radha Jaffe MD Unavailable [phone] Bhaskar Denis MD Unavailable [facility] Primary Care Provi sandra Vasiliy Boston MD Unavailable Encounter Details Date Type Department Care Team (Late st Contact Info) Description 09/29/2023 MyC Medical Advice [facility] [address] [place] [address] Radha Sanchez Social History Tobacco Use Types Packs/Day Years [...] re latives? Once a week 09/16/2023 Attends Pentecostalism Services Not on file 09/15 Active Member of Clubs or Organizations Not on f ile 09/16/2023 Attends Club or Organization Meetings Not on sinai e 09/16/2023 Marital Status Not on file 09/16/2023 PHQ-2 Answer Date Recorded PHQ-2 Score 0 09/03/2023 [facility] of Occupat ional Health - Occupational Stress [...] Description 03/07/2024 7:30 AM CDT Hospital Encounter [facility] PeriOp Services [address] [place] [address] Bhaskar Denis MD [address] [place] [address] 03/07/2024 7:30 AM CDT [facility] [address] [place] [address] Rima Bray PA-C [facility], SURGERY [address] [place] [address] 03/07/2024 7:30 AM CDT - 03/07/2024 10:00 AM CDT Surgery [facility] [address] [place] [address] Bhaskar Denis MD [address] [place] [address] 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 03/31/2024 9:30 AM CDT Office Visit [address] [address] Crescencio Hou PA-C [address] [place] [address] 04/28/2024 9:00 AM PRECIPITATE WASHER Office Visit [address] [address] Crescencio Hou, PAFerozC [address] [place] [address] Scheduled Procedures Name Priority Associated Diagnoses Date/Ti [...] documented as of this encounter Care Teams Tube Machine Operator Relationship Specialty Start Date End Date [facility], [address] [address] PCP - General 09/16/23 Jimbo Green MD ORTHOPEDIC FRACTURE [facility] [address] [place] [address] Family Practice 04/19/13 Radha Jaffe MD [address] [place] [address] Orthopedics 06/03/18 Bhaskar Denis MD [address] [place] [address] Assigned Musculoskeletal Provider 08/28/23 Vasiliy Boston MD [address] [place] [address] TOMASA MENDIETA [address] Assigned PCP 10/28/23 documented as of this encounter
--- OUTSIDE RECORDS SUMMARY | 2024-02-17 21:47 | XMS_ITS | Encounter Summary ---
Author Organization [facility] Address [address] [place] [address] Care Team Providers Care Supervisor [employer]let [employer] Name Role Phone Jimbo Green MD Unavailable [phone] Radha Jaffe MD Unavailable [phone] Bhaskar Denis MD Unavailable [phone] [facility] Primary Care Provi sandra Vasiliy Boston MD Unavailable Reason for Visit * Reason Comments Pre-Op Exam Encounter Details Date Type Department Care Team (Latest Contact Info) Description 02/14/2024 7:00 AM CDT Office Visit [facility] Preoperative Assessment Center [address] [place] [phone] Rima rBay PA-C [facility], SURGERY [address] [place] [address] Preop examination (Primary Dx); Osteoarthrosis, localized, primary, knee, right; Type 2 diabetes mellitus without complication, without long-term current use of insulin (H) Anesthesia Record Procedure Summary Procedure Name Responsible Anesthesiologist Anesthesia Start Time Anesthesia Stop Time 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 (Right: Knee) Events No events on file. Meds * Agents No agents on file. * Blood No blood administrations on file. Lines, Drains, and Airways Type Details Placement Removal Incision/Surgical Site 11/03/13; 1325; R ight; Knee 11/03/13 1325 by Atiya Dalton RN Incision/Surgical Site 07/01/18 07/01/18 0000 by Vera Nolen RN documented in this encounter Social History Tobacco Use Types Packs/Day Years [...] re latives? Once a week 09/16/2023 Attends Temple Services Not on file 09/15 Active Member of Clubs or Organizations Not on f ile 09/16/2023 Attends Club or Organization Meetings Not on sinai e 09/16/2023 Marital Status Not on file 09/16/2023 PHQ-2 Answer Date Recorded PHQ-2 Score 0 02/14/2024 [place] [facility] [employer] [employer] [facility] - Occupational Stress [...] in an abandoned building, in an overnight senior care, or couch-surfing.) Yes 09/16/2023 Are you worried [...] on file documented as of this encounter Last Filed Vital Signs Vital Sign Reading [...] Mass Index 25.29 02/14/2024 6:53 AM CDT documented in this encounter Patient Instructions * Patient Instructions* Rachelle Reid RN - 02/14/2024 7:00 AM CDT Name: Gio Rader : 1965 Today's Date: 02/14/2024 You were seen today for a pre-operative assessment in the: Pre-operative Anesthesia Assessment Center(PAC) [facility] [address] [place] [address] phone [phone] You will be receiving a call with location, date, arrival time and diet instructions from Preadmission Nursing at your surgical site: -[facility]: [phone] -[facility]: [phone] -[facility]: [phone] -[facility]: [phone] -[facility]: [phone] -[facility]: [phone] -[facility]: [phone] -[facility]: [phone] Anesthesia recommendations for medications: Hold Aspirin for 7 days before procedure. Hold Multivitamins for 7 days before procedure. Hold Herbal medications and Supplements for 7 days before procedure. Hold Ibuprofen for 1 day before procedure. Hold Naproxen for 4 days before procedure. No alcohol or cannabis products for 24 hours before your procedure Hold Jardiance for 3 days before procedure--take last dose on 03/03/24 Please take these medications the day of procedure: Inhaler per your routine and bring to hospital Famotidine How do I prepare myself? - Please take 2 showers (one the night prior to surgery and one the morning of surgery) using Scrubcare or Hibiclens soap. Use this soap only from the neck to your toes. Leave the soap on your skin for one minute--then rinse thoroughly. You may use your own shampoo and conditioner. No other hair products. - Please remove all jewelry and body piercings. - No lotions, deodorants or fragrance. - No makeup or fingernail georgian. - Bring your ID and insurance card. -If you have a Deep Brain Stimulator, a Spinal Cord Stimulator, or any implanted Neuro Device, you must bring the remote to your appointment For further questions regarding your surgery please call your surgeon's office. documented in this encounter H&P Notes * Rima Bray PA-C - 02/14/2024 7:00 AM CDT Images from the original note were not included. Pre-Operative H & P CC: Preoperative exam to assess for increased cardiopulmonary risk while undergoing surgery and anesthesia. Date of Encounter: 02/14/2024 Primary Care Physician: Angus [place] Reason for visit: Encounter Diagnoses Name Primary? Osteoarthrosis, localized, primary, knee, right Yes Preop examination Type 2 diabetes mellitus without complication, without long-term current use of insulin (H) HPI Gio Rader is a 59 year old male who presents for pre-operative H & P in preparation for Procedure Information Case: [id number] Date/Time: 03/07/24729 Procedure: 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 (Right: Knee) Anesthesia type: Choice Diagnosis: Osteoarthrosis, localized, primary, knee, right [M17.11] Pre-op diagnosis: Osteoarthrosis, localized, primary, knee, right [M17.11] Location: OR / OR Providers: Bhaskar Denis MD Patient is being evaluated for comorbid conditions of GERD, arthritis, diabetes. Mr. Rader has a history of chronic right knee pain. He is status post patellofemoral arthroplasty in 2013, knee arthroscopy with partial medial meniscectomy in 2018. He was evaluated by Dr. Parker and is now scheduled for the above procedure. The above procedure was initially scheduled in September, but was postponed due to A1c of 9.9. History is obtained from the patient and chart review Hx of abnormal bleeding or anti-platelet use: denies Past Medical History Past Medical History: Diagnosis Date Anesthesia complication aspirated post induction Arthritis Cancer (H) Skin cancer Diabetes mellitus, type 2 (H) 09/16/2023 Gastro-oesophageal reflux disease Osteoarthrosis, localized, primary, knee, right Uncomplicated asthma Past Surgical History Past Surgical History: Procedure Laterality Date ARTHROCENTESIS TEMPOROMANDIBULAR JOINT (TMJ) ARTHROSCOPY KNEE 11/03/2013 Procedure: ARTHROSCOPY KNEE; Surgeon: Radha Jaffe MD; Location: OR ARTHROSCOPY KNEE WITH MEDIAL MENISCECTOMY Right 07/01/2018 Procedure: Right Knee Arthroscopy, Medial femoral chondyle debridement; Surgeon: Radha Jaffe MD; Location: [facility] BIOPSY COLONOSCOPY EYE SURGERY Lasik x2 HEAD & NECK SURGERY TMJ KNEE SURGERY ORTHOPEDIC SURGERY arm fracture ORTHOPEDIC SURGERY right shoulder scope SINUS SURGERY SOFT TISSUE SURGERY TRANSPLANT Right knee Prior to Admission Medications Current Outpatient Medications Medication Sig Dispense Refill albuterol (PROAIR HFA, PROVENTIL HFA, VENTOLIN HFA) 108 (90 BASE) MCG/ACT inhaler Inhale 2 puffs into the lungs every 6 hours as needed for shortness of breath / dyspnea or wheezing atorvastatin (LIPITOR) 20 MG tablet Take 1 tablet (20 mg) by mouth daily (Patient taking differently: Take 20 mg by mouth every evening.) 90 tablet 3 empagliflozin (JARDIANCE) 10 MG TABS tablet Take 1 tablet (10 mg) by mouth daily (Patient taking differently: Take 10 mg by mouth every evening.) 90 tablet 1 famotidine (PEPCID) 40 MG tablet Take 40 mg by mouth every morning metFORMIN (GLUCOPHAGE XR) 500 MG 24 hr tablet Take 2 tablets (1,000 mg) by mouth daily (with dinner) 180 tablet 1 pantoprazole (PROTONIX) 40 MG enteric coated tablet Take 1 tablet by mouth every evening cholecalciferol (VITAMIN D3) 25 mcg (1000 units) capsule Take 1 capsule by mouth daily (Patient nottaking: Reported on 02/14/2024) co-enzyme Q-10 30 MG CAPS capsule Take 50 mg by mouth daily (Patient not taking: Reported on 02/14/2024) Allergies Allergies Allergen Reactions Amoxicillin Dust Mites Other (See Comments) No reaction listed in Cerner Mold Other (See Comments) No reaction listed in [employer]ner Penicillins Other (See Comments) and Nausea and Vomiting Ragweeds Other (See Comments) No reaction listed in Cerner Social History Social History Socioeconomic History Marital status: Spouse name: Not on file Number of children: Not on file Years of education: Not on file Highest education level: Not on file Occupational History Not on file Tobacco Use Smoking status: Former Types: Dip, chew, snus or snuff, Cigarettes Passive exposure: Yes Smokeless tobacco: Current Types: Chew Tobacco comments: Occasionally uses snuff Vaping Use Vaping status: Never Used Substance and Sexual Activity Alcohol use: Yes Comment: 1- drink a week occ Drug use: No Sexual activity: Yes Partners: Female Other Topics Concern Not on file Social History Narrative Not on file Social Determinants of Health Financial Resource Strain: Low Risk (09/16/2023) Financial Resource Strain Within the past 12 months, have you or your family members you live with been unable to get utilities (heat, electricity) when it was really needed?: No Food Insecurity: Low Risk (09/16/2023) Food Insecurity Within the past 12 months, did you worry that your food would run out before you got money to buy more?: No Within the past 12 months, did the food you bought just not last and you didn???t have money to getmore?: No Transportation Needs: Low Risk (09/16/2023) Transportation Needs Within the past 12 months, has lack of transportation kept you from medical appointments, getting your medicines, non-medical meetings or appointments, work, or from getting things that you need?: No Physical Activity: Sufficiently Active (09/16/2023) Exercise Vital Sign Days of Exercise per Week: 4 days Minutes of Exercise per Session: 60 min Stress: No Stress Concern Present (09/16/2023) [place] [facility] [employer] - Occupational Stress Questionnaire Feeling of Stress : Not at all Social Connections: Unknown (09/16/2023) Social Connection and Isolation Panel [NHANES] Frequency of Communication with Friends and Family: Not on file Frequency of Social Gatherings with Friends and Family: Once a week Attends Temple Services: Not on file Active Member of Clubs or Organizations: Not on file Attends Club or Organization Meetings: Not on file Marital Status: Not on file Interpersonal Safety: Low Risk (09/16/2023) Interpersonal Safety Do you feel physically and emotionally safe where you currently live?: Yes Within the past 12 months, have you been hit, slapped, kicked or otherwise physically hurt by someone?: No Within the past 12 months, have you been humiliated or emotionally abused in other ways by your partner or ex-partner?: No Housing Stability: Low Risk (09/16/2023) Housing Stability Do you have housing? : Yes Are you worried about losing your housing?: No Family History Family History Problem Relation Age of Onset Diabetes Mother Type 2 Coronary Artery Disease Paternal Grandfather Colon Cancer Paternal Grandfather Substance Abuse Brother Alcohol Anesthesia Reaction No family hx of Deep Vein Thrombosis (DVT) No family hx of Review of Systems The complete review of systems is negative other than noted in the HPI or here. Anesthesia Evaluation Pt has had prior anesthetic. History of anesthetic complications h/o aspiration pneumonia after GA as a child. Has since had multiple procedures w/o issue. ROS/MED HX ENT/Pulmonary: Comment: Inhaler PRN, no use recently Hx sinus surgery (+) Intermittent, asthma Treatment: Inhaler prn, (-) tobacco use Neurologic: - neg neurologic ROS (-) no seizures and no CVA Cardiovascular: (+) - - - - - Previous cardiac testing Echo: Date: Results: Stress Test: Date: Results: ECG Reviewed: Date: 2015 Results: Sinus bradycardia Cath: Date: Results: (-) taking anticoagulants/antiplatelets METS/Exercise Tolerance: >4 METS Comment: Exercise bike, lifting weights, walking long distances Hematologic: (+) History of blood clots (following partial knee replacement 10 yrs ago), pt is not anticoagulated, (-) history of blood transfusion Musculoskeletal: Comment: S/p patellofemoral arthroplasty in 2013, knee arthroscopy with partial medial meniscectomy in 2019 (+) arthritis (knees, R shoulder, left hip), GI/Hepatic: (+) GERD, Asymptomatic on medication, (-) liver disease Renal/Genitourinary: - neg Renal ROS (-) renal disease Endo: (+) type II DM, Last HgA1c: 7.0, date: 12/18/23, Not using insulin, (-) chronic steroid usage Psychiatric/Substance Use: - neg psychiatric ROS (-) psychiatric history Infectious Disease: - neg infectious disease ROS Malignancy: (+) Malignancy, History of Skin.Skin CA Remission status post Surgery. Other: - neg other ROS BP 123/80 (BP Location: Right arm, Patient Position: Sitting, Cuff Size: Adult Regular) Pulse 80 Temp 97.9 ??F (36.6 ??C) (Oral) Resp 16 Ht 1.88 m (6' 2) Wt 89.4 kg (197 lb) SpO2 97% BMI 25.29 kg/m?? Physical Exam Constitutional: Awake, alert, cooperative, no apparent distress, and appears stated age. Eyes: Pupils equal, round and reactive to light, extra ocular muscles intact, sclera clear, conjunctiva normal. HENT: Normocephalic, oral pharynx with moist mucus membranes, good dentition. No goiter appreciated. No removable dental hardware. Respiratory: Clear to auscultation bilaterally, no crackles or wheezing. No SOB when supine. Cardiovascular: Regular rate and rhythm, normal S1 and S2, and no murmur noted. Carotids +2, no bruits. No edema. Palpable pulses to radial, DP and PT arteries. GI: Normal bowel sounds, soft, non-distended, non-tender, no masses palpated. Lymph/Hematologic: No cervical lymphadenopathy and no supraclavicular lymphadenopathy. Genitourinary: deferred Skin: Warm and dry. No rashes. Numerous tattoos. Musculoskeletal: Full ROM of neck. There is no redness, warmth, or swelling of the joints. Gross motor strength is normal. Neurologic: Awake, alert, oriented to name, place and time. Cranial nerves II- XII are grossly intact. Gait is normal. Ambulates from chair to exam table, seats self, lies supine and sits back up w/o assistance. Neuropsychiatric: Calm, cooperative. Normal affect. Pleasant. Answers questions appropriately, follows commands w/o difficulty. PRIOR LABS/DIAGNOSTIC STUDIES: All labs and imaging personally reviewed The patient's records and results personally reviewed by this provider. LAB/DIAGNOSTIC STUDIES ORDERED TODAY: BMP, CBC, A1c, T&S Assessment Gio Rader is a 59 year old male seen as a PAC referral for risk assessment and optimization for anesthesia. Plan/Recommendations Pt will be optimized for the proposed procedure. See below for details on the assessment, risk, andpreoperative recommendations NEUROLOGY - No history of TIA, CVA or seizure -Post Op delirium risk factors: No risk identified ENT - No current airway concerns. Will need to be reassessed day of surgery. Mallampati: III TM: > 3 CARDIAC - No history of CAD, Hypertension, and Afib - METS (Metabolic Equivalents) Patient performs 4 or more METS exercise without symptoms Total Score: 0 RCRI-Very low risk: Class 1 0.4% complication rate Total Score: 0 PULMONARY WENDY Low Risk Total Score: 2 WENDY: Over 50 ys old WENDY: Male - Mild intermittent asthma, rare use of inhaler. - Tobacco History History Smoking Status Former Types: Dip, chew, snus or snuff, Cigarettes Smokeless Tobacco Current Types: Chew GI - GERD Controlled on medications: Pepcid & Protonix PONV Medium Risk Total Score: 2 1 AN PONV: Patient is not a current smoker 1 AN PONV: Intended Post Op Opioids ENDOCRINE - BMI: Estimated body mass index is 25.29 kg/m?? as calculated from the following: Height as of this encounter: 1.88 m (6' 2). Weight as of this encounter: 89.4 kg (197 lb). Healthy Weight (BMI 18.5-24.9) - DM2, hold metformin DOS, hold Jardiance x3d prior - A1c on 12/17 was 7.0 HEME VTE Medium Risk 1.8% Total Score: 5 VTE: Male VTE: Pt history of VTE - No history of abnormal bleeding or antiplatelet use. MSK Patient is NOT Frail Total Score: 0 - s/p patellofemoral arthroplasty in 2014, knee arthroscopy with partial medial meniscectomy in 2019. The patient is aware that the final anesthesia plan will be decided by the assigned anesthesia provider on the date of service. The patient is optimized for their procedure. AVS with information on meds given by nursing staff. No further diagnostic testing indicated. On the day of service: Prep time: 12 minutes Visit time: 18 minutes Documentation time: 13 minutes Total time: 43 minutes Rima Bray PA-C Preoperative Assessment Center [facility] documented in this encounter Plan of Treatment Upcoming Encounters Date Type Department Care Team (Latest Contact Info) Description 03/07/2024 7:30 AM CDT Hospital Encounter [facility] PeriOp Services [address] [place] [phone] Bhaskar Denis MD [address] [place] [address] 03/07/2024 7:30 AM CDT Anesthesia Event [facility] PeriOp Services [address] [place] [address] Rima Bray PA-C [facility], SURGERY [address] [place] [address] 03/07/2024 7:30 AM CDT - 03/07/2024 10:00 AM CDT Surgery [facility] PeriOp Services [address] [place] [address] Bhaskar Denis MD [address] [place] [address] 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 03/31/2024 9:30 AM CDT Office Visit [address] [address] Crescencio Hou, PAFerozC [facility] [place] [address] 04/28/2024 9:00 AM COMPUTER DESIGNER Office Visit [address] [address] Crescencio Hou, PAFerozC [facility] [place] [address] Scheduled Procedures Name Priority Associated Diagnoses Date/Ti nm ARTHROPLASTY, KNEE, TOTAL Osteoarthrosis, localized, primary, knee, right 03/07/2024 7:30 AM CDT documented as of this encounter Goals Goal Patient Goal Type Associated Problems Recent Progress Patient-Stated? Author Total Joint Replacement Hip Pathway Care Plan Total Joint Replacement Hip Pathway No Miranda Dunn documented as of this encounter Results * (ABNORMAL) Hemoglobin A1c (02/15/2024 7:36 AM CDT) Hemoglobin A1C 7.1(H) 0.0 - 5.6 % 02/15/2024 7:46 AM CDT [facility] Comment: Normal <5.7% Prediabetes 5.7-6.4% ?? Diabetes 6.5% or higher Note: Adopted from ADA consensus guidelines. Blood BLOOD SPECIMEN / Unknown Venipuncture / Unknown 02/15/2024 7:36 AM CDT 02/15/2024 7:36 AM CDT Rima Bray PA-C LAB - BLOOD ORDERABL ES [facility] [address] [facility] (no room number, 1st floor of clinic) [place] [address] * (ABNORMAL) CBC with platelets (02/15/2024 [...] LAB - BLOOD ORDERABL ES [facility] [place] [facility] [address] [facility] (no room number, 1st floor of clinic) [place] [address], [facility] * (ABNORMAL) Basic metabolic panel (02/15/2024 [...] 4:49 PM CDT [facility] Comment:eGFR calculated us2020 CKD-EPI equation. Calcium 9.4 8.8 - 10.4 [...] LAB - BLOOD ORDERABL ES [facility] [address] [facility] [address], Room [address] [place] [address], [facility] documented in this encounter Visit Diagnoses Diagnosis Preop examination- Primary Preoperative examination, unspecified Osteoarthrosis, localized, primary, knee, right Type 2 diabetes mellitus without complication, without long-term current use of insulin (H) Osteoarthrosis, localized, primary, knee, right documented in this encounter Additional Health Concerns Active Problems Noted Date Diagnosed Date Total Joint Replacement Hip Pathway 08/27/2023 documented as of this encounter Care Teams Supervisor [employer] Relationship Specialty Start Date End Date [facility], [address] [address] PCP - General 09/16/23 Jimbo Green MD ORTHOPEDIC FRACTURE [facility] [address] [place] [address] Family Practice 04/19/13 Radha Jaffe MD [address] [place] [address] Orthopedics 06/03/18 Bhaskar Denis MD [address] [place] [address] Assigned Musculoskeletal Provider 08/28/23 Vasiliy Boston MD [address] [place] [address] TOMASA MENDIETA [address] Assigned PCP 10/28/23 documented as of this encounter
--- OUTSIDE RECORDS SUMMARY | 2024-02-17 21:47 | XMS_ITS | Encounter Summary ---
Author Organization [facility] Address [address] [place] [address]. [place] [address] Care Team Providers Care Fisher Name Role Phone Jimbo Green MD Unavailable Radha Jaffe MD Unavailable [phone] Bhaskar Denis MD Unavailable [phone] [facility] Primary Care Provi sandra Vasiliy Boston MD Unavailable Encounter Details Date Type Department Care Team (Latest Contact Info) Description 12/18/2023 Travel Social History Tobacco Use Types Packs/Day [...] re latives? Once a week 09/16/2023 Attends Christian Services Not on file 09/15 Active Member of Clubs or Organizations Not on f ile 09/16/2023 Attends Club or Organization Meetings Not on sinai e 09/16/2023 Marital Status Not on file 09/16/2023 PHQ-2 Answer Date Recorded PHQ-2 Score 0 09/03/2023 [facility] [place] of Occupat ional Health - Occupational Stress [...] in an abandoned building, in an overnight longterm, or couch-surfing.) Yes 09/16/2023 Are you worried [...] Description 03/07/2024 7:30 AM CDT Hospital Encounter [facility] PeriOp Services [address] [place] [address] Bhaskar Denis MD [address] [place] [address] 03/07/2024 7:30 AM CDT Anesthesia Event [facility] PeriOp Services [address] [place] [address] Rima Bray PA-C [facility], SURGERY [address] [place] [address] 03/07/2024 7:30 AM CDT - 03/07/2024 10:00 AM CDT Surgery [facility] PeriOp Services [address] [place] [address] Bhaskar Denis MD [address] [place] [address] 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 03/31/2024 9:30 AM CDT Office Visit [address] [address] Crescencio Hou, PAFerozC [address] [place] [address] 04/28/2024 9:00 AM PIANO INSTRUCTOR Office Visit [address] [address] Crescencio Hou, PA-C [address] [place] [address] Scheduled Procedures Name Priority Associated Diagnoses Date/Ti [...] documented as of this encounter Care Teams Fisher Relationship Specialty Start Date End Date [facility], [address] [place] [address] PCP - General 09/16/23 Jimbo Green MD ORTHOPEDIC FRACTURE [facility] [address] [place] [address] Family Practice 04/19/13 Radha Jaffe MD [address] [place] [address] Orthopedics 06/03/18 Bhaskar Denis MD [address] [place] [address] Assigned Musculoskeletal Provider 08/28/23 Vasiliy Boston MD [address] [place] [address] [place] MEND[place]ET[place] [address] Assigned PCP 10/28/23 documented as of this encounter
--- OUTSIDE RECORDS SUMMARY | 2024-02-17 21:47 | XMS_ITS | Encounter Summary ---
Author Organization [place] Address [address] [place] [address]. [place] [address] Care Team Providers Care Strategic Debriefing Officer Name Role Phone Staci Stiles Primary Care Provider Jimbo Green MD Unavailable [phone] Radha Jaffe MD Unavailable [phone] Bhaskar Denis MD Unavailable [phone] [facility] Primary Care Provi sandra Vasiliy Boston MD Unavailable Encounter Details Date Type Department Care Team (Late st Contact Info) Description 09/06/2023 [facility] [address] 5[address] [place] [address] Ai Cox, RN Social History Tobacco Use Types Packs/Day Years Used Date Smoking Tobacco: Never Smokeless Tobacco: Never Comments:Occasionally uses s nuff Alcohol Use Standard Drinks/Week Comments Not Currently 0 (1 standard drink = 0.6 oz pur e alcohol) 1- drink a week occ PHQ-2 Answer Date Recorded PHQ-2 Score 0 09/03/2023 Adolescent Education Answer Date Record ed Getting School Help Needed Not on file 02/26 Sex and Gender Information Value Date Recorded Sex Assigned at Not on file Gender Identity Not on file Sexual Orientation Not on file documented as of this encounter Plan of Treatment Upcoming Encounters Date Type Department Care Team (Latest Contact Info) Description 03/07/2024 7:30 AM CDT Hospital Encounter [facility] PeriOp Services [address] [place] [address] Bhaskar Denis MD [address] [place] [address] 03/07/2024 7:30 AM CDT Anesthesia Event [facility] [address] [place] [address] Rima Bray PA-C [facility], SURGERY [address] [place] [address] 03/07/2024 7:30 AM CDT - 03/07/2024 10:00 AM CDT Surgery [facility] [address] [place] [address] Bhaskar Denis MD [address] [place] [address] 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 03/31/2024 9:30 AM CDT Office Visit [address] [address] Crescencio Hou PA-C [facility] [place] [address] 04/28/2024 9:00 AM HEAD AND NECK SURGEON Office Visit [address] [place] [address] Crescencio Hou, PAMike [facility] [place] [address] Scheduled Procedures Name Priority Associated Diagnoses Date/Ti [...] documented as of this encounter Care Teams Strategic Debriefing Officer Relationship Specialty Start Date End Date Staci Stiles PCP - General Family Practice 04/19/13 09/15/[address] [place] [address] PCP - General 09/16/23 Jimbo Green MD OR[facility]OPEDIC FRACTURE [facility] [address] [place] [address] Family Practice 04/19/13 Radha Jaffe MD [address] [place] [address] Orthopedics 06/03/18 Bhaskar Denis MD [address] [place] [address] Assigned Musculoskeletal Provider 08/28/23 Vasiliy Boston MD [address] [place] [address] [place] [address] Assigned PCP 10/28/23 documented as of this encounter
--- OUTSIDE RECORDS SUMMARY | 2024-02-17 21:47 | XMS_ITS | Encounter Summary ---
Author Organization [place] Address [address] [place] [address]. [place] [address] Care Team Providers Care Founder Ceo & President Name Role Phone [email or web address] Staci Primary Care Provider Jimbo Green MD Unavailable [phone] Radha Jaffe MD Unavailable [phone] Radha Jaffe MD Unavailable [phone] Bhaskar Denis MD Unavailable [phone] [facility] Primary Care Provi sandra Vasiliy Boston MD Unavailable Encounter Details Date Type Department Care Team (Late st Contact Info) Description 08/11/2023 Telephone [facility] Orthopedic [address] [place] [address] Radha Jaffe MD [address] [place] [address] Social History Tobacco Use Types Packs/Day Years Used Date Smoking Tobacco: Never Smokeless Tobacco: Never Alcohol Use Standard Drinks/Week Comments No 0 (1 standard drink = 0.6 oz pur e alcohol) PHQ-2 Answer Date Recorded PHQ-2 Score 0 07/23/2021 Adolescent Education Answer Date Record ed Getting School Help Needed Not on file 02/26 Sex and Gender Information Value Date Recorded Sex Assigned at Not on file Gender Identity Not on file Sexual Orientation Not on file documented as of this encounter Miscellaneous Notes * Telephone Encounter - JohnSeptember - 08/11/2023 3:34 PM CST Patient Returning Call Reason for call: pt is requesting surgery for Right knee replacement, last time pt saw provider 03/2022 Information relayed to patient: te sent to clinic Patient has additional questions: No Okay to leave a detailed message?: Yes at Cell number on file: Telephone Information: CH SERVICE ASSOCIATE documented in this encounter Plan of Treatment Upcoming Encounters Date Type Department Care Team (Latest Contact Info) Description 03/07/2024 7:30 AM CDT Hospital Encounter [facility] PeriOp Services [address] [place] [address] Bhaskar Denis MD [address] [place] [address] 03/07/2024 7:30 AM CDT Anesthesia Event [facility] PeriOp Services [address] [place] [address] Rima Bray PA-C [facility], SURGERY [address] [place] [address] 03/07/2024 7:30 AM CDT - 03/07/2024 10:00 AM CDT Surgery [facility] Per[facility]Op Services [address] [place] [address] Bhaskar Denis MD [address] [place] [address] 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 [address] [facility] [address] [place] [address] Crescencio Hou, PAMike [address] [place] [address] Scheduled Procedures Name Priority Associated Diagnoses Date/Ti me ARTHROPLASTY, KNEE, TOTAL Osteoarthrosis, localized, primary, knee, right 03/07/2024 7:30 AM CDT documented as of this encounter Visit Diagnoses Not on filedocumented in this encounter Care Teams Founder Ceo & President Relationship Specialty Start Date End Date Staci Stiles PCP - General Family Practice 04/19/13 09/15/[address] [address] PCP - General 09/16/23 Jimbo Green MD OR[facility]OPEDIC FRACTURE [facility] [address] [place] [address] Family Practice 04/19/13 Radha Jaffe MD [address] [place] [address] Orthopedics 06/03/18 Radha Jaffe MD [address] [place] [address] Assigned Musculoskeletal Provider 5/22/22 3/22/24 Bhaskar Denis MD 9 [place] [address] Assigned Musculoskeletal Provider 08/28/23 Vasiliy Boston MD 0 [facility] [place] [address] Assigned PCP 10/28/23 documented as of this encounter
--- OUTSIDE RECORDS SUMMARY | 2024-02-17 21:47 | XMS_ITS | Encounter Summary ---
Author Organization [place] Address [address] [place] [address]. [place] [address] Care Team Providers Care Manager Cafe Name Role Phone Jimbo Green MD Unavailable [phone] Radha Jaffe MD Unavailable [phone] Bhaskar Denis MD Unavailable [phone] [facility] Primary Care Provi sandra Vasiliy Boston MD Unavailable Encounter Details Date Type Department Care Team (Latest Contact Info) Description 12/17/2023 Travel Social History Tobacco Use Types Packs/Day [...] re latives? Once a week 09/16/2023 Attends Christianity Services Not on file 09/15 Active Member of Clubs or Organizations Not on f ile 09/16/2023 Attends Club or Organization Meetings Not on sinai e 09/16/2023 Marital Status Not on file 09/16/2023 PHQ-2 Answer Date Recorded PHQ-2 Score 0 09/03/2023 [facility] [place] [facility] - Occupational Stress [...] Description 03/07/2024 7:30 AM CDT Hospital Encounter [facility] PeriOp Services [address] [place] [address] Bhaskar Denis MD [address] [place] [address] 03/07/2024 7:30 AM CDT Anesthesia Event [facility] PeriOp Services [address] [place] [address] Rima Bray PA-C [facility], SURGERY [address] [place] [address] 03/07/2024 7:30 AM CDT - 03/07/2024 10:00 AM CDT Surgery [facility] PeriOp Services [address] [place] [address] Bhaskar Denis MD [address] [place] [address] 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 03/31/2024 9:30 AM CDT Office Visit [address] [address] Crescencio Hou, PAFerozC [address] [place] [address] 04/28/2024 9:00 AM TRANSPORTATION AIDE Office Visit [address] [address] Crescencio Hou, PA-C [address] [place] [address] Scheduled Procedures Name Priority Associated Diagnoses Date/Ti [...] documented as of this encounter Care Teams Manager Cafe Relationship Specialty Start Date End Date [facility], [address] [place] [address] PCP - General 09/16/23 Jimbo Green MD ORTHOPEDIC FRACTURE [facility] [address] [place] [address] Family Practice 04/19/13 Radha Jaffe MD [address] [place] [address] Orthopedics 06/03/18 Bhaskar Denis MD [address] [place] [address] Assigned Musculoskeletal Provider 08/28/23 Vasiliy Boston MD [address] [place] [address] [place] [address] Assigned PCP 10/28/23 documented as of this encounter
--- OUTSIDE RECORDS SUMMARY | 2024-02-17 21:47 | XMS_ITS | Encounter Summary ---
Author Organization [place] Address [address] [place] [address] Care Team Providers Care Legal Document Specialist Name Role Phone Jimbo Green MD Unavailable Radha Jaffe MD Unavailable [phone] Bhaskar Denis MD Unavailable [phone] [facility] Primary Care Provi sandra Vasiliy Boston MD Unavailable Encounter Details Date Type Department Care Team (Late st Contact Info) Description 12/18/2023 10:[address] [facility] [address] [place] [phone] Diabetes mellitus, type 2 (H) (Primary Dx) Social History Tobacco Use Types Packs/Day Years [...] Answer Date Recorded PHQ-2 Score 0 09/03/2023 [facility] - Occupational Stress Questionnaire Answer Date [...] Answer Date Recorded Do you have housing? (Ehsanin g is defined as stable permanent housing [...] Description 03/07/2024 7:30 AM CDT Hospital Encounter [facility] PeriOp Services [address] [place] [address] Bhaskar Denis MD [address] [place] [address] 03/07/2024 7:30 AM CDT Anesthesia Event [facility] [address] [place] [address] Rima Bray PA-C [facility], SURGERY [address] [place] [address] 03/07/2024 7:30 AM CDT - 03/07/2024 10:00 AM CDT Surgery [facility] PeriOp Services [address] [place] [address] Bhaskar Denis MD [address] [place] [address] 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 Author Total Joint Replacement Hip Pathway Care Plan Total Joint Replacement Hip Pathway No Miranda Dunn documented as of this encounter Procedures Procedure Name Priority Date/Time Associated Diagnosis Comments HEMOGLOBIN A1C Routine 12/18/2023 10:30 AM CDT Diabetes mellitus, type 2 (H) documented in this encounter Results * (ABNORMAL) HEMOGLOBIN A1C (12/18/2023 10:30 AM CDT) Hemoglobin A1C 7.0(H) 0.0 - 5.6 % 12/18/2023 10:40 AM CDT [facility] Comment: Normal <5.7% Prediabetes 5.7-6.4% ?? Diabetes 6.5% or higher Note: Adopted from ADA consensus guidelines. Blood BLOOD SPECIMEN / Unknown Venipuncture / Unknown 12/18/2023 10:30 AM CDT 12/18/2023 10:30 AM CDT Vasiliy Boston MD LAB - BLOOD ORDERABL [facility] LAB[facility]ATORY [facility] [address] [facility] (no room number, 1st floor of clinic) [place] [address], [facility] [phone] documented in this encounter Visit Diagnoses Diagnosis Diabetes mellitus, type 2 (H)- Primary Type II or unspecified type diabetes mellitus without mention of complication, not stated as uncontrolled Osteoarthrosis, localized, primary, knee, right documented in this encounter Additional Health Concerns Active Problems Noted Date Diagnosed Date Total Joint Replacement Hip Pathway 08/27/2023 documented as of this encounter Care Teams Legal Document Specialist Relationship Specialty Start Date End Date [facility] [address] [place] [address] [place] [address] PCP - General 09/16/23 Jimbo Green MD ORTHOPEDIC FRACTURE [facility] [address] [place] [address] Family Practice 04/19/13 Radha Jaffe MD [address] [place] [address] Orthopedics 06/03/18 Bhaskar Denis MD 9 [place] [address] Assigned Musculoskeletal Provider 08/28/23 Vasiliy Boston MD [address] [place] [address] [place] [address] Assigned PCP 10/28/23 documented as of this encounter
== END 2024-02-17 21:55 | disposition home or self-care (01) ==
PROVIDERS: Emergency Provider Family Medicine
DX: S50.12XA Contusion of left forearm, initial encounter (principal)
CPT/HCPCS: 73060; 73090; 99283; 99284